=== PATIENT | female | born 1945 | race Caucasian/White ===

== ENCOUNTER → 2016-05-02 | Outpatient (CLI) | payer MEDICARE, BC ==
[~2016-05-02] MED LIST: ADVI200C5 PO; AFAT1TAB2 PO; ASPI1TAB69 PO; ASPI81TA11 PO; ASPI81TA82 PO; CALC600T25 PO; CALC600T34 PO; CALCTAB32 PO; CEFU1TAB43 PO; COLA100C3 PO; CORTIS10A LEFT EAR; COUM6TAB PO; FERR200T PO; FERR65TA PO; HYDR-3516 PO; LEVO.025 PO; LEVO25TA4 PO; LOSA25TA31 PO; LOSA50TA PO; MUCI600T PO; PRAV20 PO; PRED10PA PO; SYNT25TA PO; TAGRISSO PO; TOPA25TA8 PO; TOPI1TAB36 PO; TOPI25 PO; VITA10004 PO; WARF-60 PO; [UNRECOGNIZED DRUG - CODE] PO
[2016-05-02 15:08] LABS: AUTOMATED NEUTROPHIL # 7.2 TH/MM3 (1.8-7.7); BASOPHIL % 0.4 % (0.0-2.0); EOSINOPHIL # 0.3 TH/MM3 (0-0.4); HEMATOCRIT 37.3 % (35.0-46.0); HEMO FLAGS DIFF FINAL; LYMPH % 4.4 % (9.0-44.0); LYMPHOCYTE # 0.4 TH/MM3 (1.0-4.8); MEAN CORPUSCULAR HEMOGLOBIN 30.7 PG (27.0-34.0); MEAN CORPUSCULAR HGB CONC 33.7 % (32.0-36.0); MONO % 6.5 % (0.0-8.0); NEUT % 85.7 % (16.0-70.0); PLATELET COUNT 225 TH/MM3 (150-450); RED CELL DISTRIBUTION WIDTH 14.8 % (11.6-17.2); WHITE BLOOD COUNT 8.4 TH/MM3 (4.0-11.0)
--- NOTE | 2016-05-03 14:08 | EKG ---
Date Performed: 05/02/2016 Time Performed: 13:40:23 PTAGE: 71 years EKG: Sinus rhythm Compared to previous tracing, early transition is new probably due to lead placement. NORMAL ECG PREVIOUS TRACING : 11/30/2015 09.23 DOCTOR: Zay Sewell Interpretating Date/Time 05/03/2016 14:07:19
== END ==
LOC: CPRE 13:18
PROVIDERS: ATTEND Ophthalmology
DX: Z01.810 Encounter for preprocedural cardiovascular examination (principal); Z01.812 Encounter for preprocedural laboratory examination; H26.9 Unspecified cataract
CPT/HCPCS: 36415; 85025; 93005

== ENCOUNTER 2016-05-25 12:07 | Inpatient (IN) | payer MEDICARE, BC ==
[~2016-05-25] VITALS: Ht 167.6 cm; Wt 55.3 kg
[~2016-05-25 12:07] MED LIST changes: -AFAT1TAB2 PO; -ASPI81TA11 PO; -ASPI81TA82 PO; -CALC600T34 PO; -CALCTAB32 PO; -CEFU1TAB43 PO; -CORTIS10A LEFT EAR; -COUM6TAB PO; -FERR200T PO; -FERR65TA PO; -LEVO.025 PO; -LOSA25TA31 PO; -MUCI600T PO; -PRAV20 PO; -PRED10PA PO; -SYNT25TA PO; -TOPA25TA8 PO; -TOPI25 PO; -WARF-60 PO; -[UNRECOGNIZED DRUG - CODE] PO
[2016-05-25 12:11] VITALS: BP 101/56; PULSE 102; RESP 20; TEMP 96.9; O2SAT 94
--- NOTE | 2016-05-25 13:01 | PD ---
HPI Chief Complaint: Abnormal Results Time Seen by Provider: 13:01 Travel History International Travel<30 days: No Contact w/Intl Traveler<30days: No Traveled to known affect area: No History of Present Illness HPI 71-year-old female with history of stage IV lung cancer presents to the ED after visiting her neurologist this morning. She states that she is very weak and tired, complains of shortness of breath. She also complains of pain in the cervical spine and intermittent diarrhea. History gathering is difficult secondary to the patient's shortness of breath. I spoke with Dr. Ha, neurology who states that the patient's O2 sats were 83% on room air in his office. He endorses a very severe decline in her functioning, stating that she was dancing 10 days ago and now is confined to a wheelchair. He sent a list of requested tests. PFSH Past Medical History Anemia: Yes Asthma: No Blood Disorders: No Anxiety: Yes Depression: No Heart Rhythm Problems: No Cancer: Yes (L BREAST AND LUNG CANCER, PORT PLACED AUGUST 2013) Cardiovascular Problems: Yes High Cholesterol: Yes Chemotherapy: Yes Chest Pain: No Congestive Heart Failure: No COPD: No Cerebrovascular Accident: Yes (TIA) Diabetes: No Diminished Hearing: No Endocrine: No GERD: Yes Genitourinary: No Headaches: Yes Hepatitis: Yes ([employer], PT STATES "NOT HEPATITIS" ON 04/24/14) Hiatal Hernia: No Hypertension: Yes Immune Disorder: No Implanted Vascular Access Dvce: Yes (INFUSAPORT RIGHT SIDE) Medical other: Yes (GERD) Musculoskeletal: No Neurologic: No Psychiatric: No Reproductive: No Respiratory: Yes (BRONCHITIS, OCC SOB) Radiation Therapy: Yes Seizures: No Sleep Apnea: No Thyroid Disease: Yes Menopausal: Yes : 2 Para: 2 Past Surgical History Abdominal Surgery: No AICD: No Body Medical Devices: R CHEST PORT Cardiac Surgery: No Section: Yes (X2) Ear Surgery: No Endocrine Surgery: No Eye Surgery: No Genitourinary Surgery: No Gynecologic Surgery: Yes (mastectomy 1988) Hysterectomy: Yes Mastectomy: Yes (LEFT SIDE) Oral Surgery: No Pacemaker: No Thoracic Surgery: No Other Surgery: Yes Social History Alcohol Use: No Tobacco Use: No Substance Use: No Allergies-Medications (Allergen,Severity, Reaction): Coded Allergies: Tylenol (Verified Allergy, Intermediate, NUMBNESS, 05/25/16) STATES TYLENOL PM Uncoded Allergies: EXCEDRIN (Allergy, Severe, DYSPNEA, 06/28/11) LATEX (Allergy, Severe, RASH, 06/28/11) BLANK (Allergy, Severe, RASH, 06/28/11) Reported Meds & Prescriptions Reported Meds & Active Scripts Active Reported Colace (Docusate Sodium) 100 Mg Cap 100 Mg PO BID PRN Advil (Ibuprofen) 200 Mg Cap 200 Mg PO Q4H PRN Hydrocodone-Acetaminophen 5-325 mg Tab 1 Tab PO Q4H PRN Topiramate 50 Mg Tab 50 Mg PO BID Losartan (Losartan Potassium) 50 Mg Tab 50 Mg PO DAILY Levothyroxine (Levothyroxine Sodium) 25 Mcg Tab 25 Mcg PO DAILY Aspirin 81 Mg Tabdr 81 Mg PO DAILY Calcium (Calcium Carbonate) 600 Mg Tab 600 Mg PO BID Review of Systems ROS Limitations: Clinical Condition (short of breath) Except as stated in HPI: all other systems reviewed are Neg Physical Exam Narrative GENERAL: Thin, chronically ill-appearing female, wearing nasal cannula, speaking in short sentences. SKIN: Warm and dry. HEAD: Normocephalic. EYES: No scleral icterus. No injection or drainage. NECK: Supple, trachea midline. No JVD or lymphadenopathy. Tender to palpation in the midline cervical spine. No limitations to range of motion. CARDIOVASCULAR: Regular rate and rhythm without murmurs, gallops, or rubs. RESPIRATORY: Breath sounds equal bilaterally. ++ accessory muscle use. GASTROINTESTINAL: Abdomen soft, non-tender, nondistended. MUSCULOSKELETAL: No cyanosis, or edema. BACK: Nontender without obvious deformity. No CVA tenderness. Data Data Last Documented VS Vital Signs Date Time Temp Pulse Resp B/P Pulse Ox O2 Delivery O2 Flow Rate FiO2 05/25/16 14:40 99 20 93 Nasal Cannula 4 05/25/16 14:40 128/66 05/25/16 12:11 96.9 Orders Complete Blood Count With Diff (05/25/16 13:02) Comprehensive Metabolic Panel (05/25/16 13:02) Prothrombin Time / Inr (Pt) (05/25/16 13:02) Act Partial Throm Time (Ptt) (05/25/16 13:02) Urinalysis - C+S If Indicated (05/25/16 13:02) Iv Access Insert/Monitor (05/25/16 13:02) Ecg Monitoring (05/25/16 13:02) Oximetry (05/25/16 13:02) Sodium Chloride 0.9% Flush (Ns Flush) (05/25/16 13:15) Carcinoembryonic Antigen (Cea) (05/25/16 13:02) Thyroid Stimulating Hormone (05/25/16 13:02) Cortisol (05/25/16 13:02) Electrocardiogram (05/25/16 13:02) Ct Pulmonary Angiogram (05/25/16 13:02) B-Type Natriuretic Peptide (05/25/16 13:02) Magnesium (Mg) (05/25/16 13:02) Ckmb (Isoenzyme) Profile (05/25/16 13:02) Troponin I (05/25/16 13:02) Mri Screening Spine W&W/O Cont (05/25/16 13:02) Pelvis, Ap Only (Routine) (05/25/16 ) Acetamin-Hydrocod 325-5 Mg ([place] 5-325 (05/25/16 15:00) Labs Laboratory Tests Test 05/25/16 14:40 White Blood Count 11.1 TH/MM3 Red Blood Count 3.33 MIL/MM3 Hemoglobin 10.0 GM/DL Hematocrit 30.3 % Mean Corpuscular Volume 91.2 FL Mean Corpuscular Hemoglobin 30.1 PG Mean Corpuscular Hemoglobin 33.1 % Concent Red Cell Distribution Width 14.5 % Platelet Count 264 TH/MM3 Mean Platelet Volume 8.2 FL Neutrophils (%) (Auto) 89.8 % Lymphocytes (%) (Auto) 4.6 % Monocytes (%) (Auto) 4.5 % Eosinophils (%) (Auto) 0.6 % Basophils (%) (Auto) 0.5 % Neutrophils # (Auto) 9.9 TH/MM3 Lymphocytes # (Auto) 0.5 TH/MM3 Monocytes # (Auto) 0.5 TH/MM3 Eosinophils # (Auto) 0.1 TH/MM3 Basophils # (Auto) 0.1 TH/MM3 CBC Comment DIFF FINAL Differential Comment Prothrombin Time 18.0 SEC Prothromb Time International 1.6 RATIO Ratio Activated Partial 45.8 SEC Thromboplast Time Sodium Level 138 MEQ/L Potassium Level 3.9 MEQ/L Chloride Level 106 MEQ/L Carbon Dioxide Level 23.1 MEQ/L Anion Gap 9 MEQ/L Blood Urea Nitrogen 36 MG/DL Creatinine 0.94 MG/DL Estimat Glomerular Filtration 58 ML/MIN Rate Random Glucose 91 MG/DL Calcium Level 8.9 MG/DL Magnesium Level 2.0 MG/DL Total Bilirubin 0.3 MG/DL Aspartate Amino Transf 42 U/L (AST/SGOT) Alanine Aminotransferase 14 U/L (ALT/SGPT) Alkaline Phosphatase 78 U/L Total Creatine Kinase 72 U/L Troponin I LESS THAN 0.02 NG/ML B-Type Natriuretic Peptide 44 PG/ML Total Protein 6.0 GM/DL Albumin 1.8 GM/DL Thyroid Stimulating Hormone 3.470 uIU/ML 3rd Gen [facility] Medical Decision Making Medical Screen Exam Complete: Yes Emergency Medical Condition: Yes Differential Diagnosis PE versus lung cancer versus medication side effect versus UTI versus dehydration versus electrolyte abnormality verus other Narrative Course 71-year-old female with history of stage IV lung cancer presents to the ED after visiting her oncologist this morning. She states that she is very weak and tired, complains of shortness of breath. She also complains of pain in the cervical spine and intermittent diarrhea. Denies abdominal pain. History gathering is difficult secondary to the patient's shortness of breath. I spoke with Dr. Ha, oncology, who states that the patient's O2 sats were 83% on room air in his office. He endorses a very severe decline in her functioning, stating that she was dancing 10 days ago and now is confined to a wheelchair. He suspects that this decline may be related to a new medication. He sent a list of requested tests. Vitals reviewed. Patient pulse 102, O2 sats 94 on room air on presentation, O2 sats dipped into the 80s when the patient speaks. Nasal cannula applied. This is a chronically ill-appearing white female, speaking in short sentences. Chest is clear to auscultation. Abdomen soft nontender. No edema in the lower extremities. Positive midline tenderness of the cervical spine. Lab work, UA, radiological studies, EKG ordered. This patient is moved to the medical pods. Please see oncoming provider note for disposition. Raisa Cavanaugh May 25, 2016 13:01
[2016-05-25] MEDS ORDERED: SODIUM CHLORIDE 0.9% FLUSH 5 ML FLUSH IVF PRN (13:15)
[2016-05-25 13:37] VITALS: O2SAT 91
[2016-05-25 14:40] VITALS: BP 128/66; PULSE 100; RESP 20; O2SAT 93
[2016-05-25] MEDS ORDERED: ACETAMINOPHEN/HYDROcodone 325 MG/5 MG TAB PO ONE (15:00)
[2016-05-25 15:15] LABS: AUTOMATED NEUTROPHIL # 9.9 TH/MM3 (1.8-7.7); BASOPHIL # 0.1 TH/MM3 (0-0.2); BASOPHIL % 0.5 % (0.0-2.0); EOSINOPHIL # 0.1 TH/MM3 (0-0.4); EOSINOPHIL % 0.6 % (0.0-4.0); HEMATOCRIT 30.3 % (35.0-46.0); HEMO FLAGS DIFF FINAL; LYMPH % 4.6 % (9.0-44.0); LYMPHOCYTE # 0.5 TH/MM3 (1.0-4.8); MEAN CELL VOLUME 91.2 FL (80.0-100.0); MEAN CORPUSCULAR HEMOGLOBIN 30.1 PG (27.0-34.0); MEAN CORPUSCULAR HGB CONC 33.1 % (32.0-36.0); MONO % 4.5 % (0.0-8.0); NEUT % 89.8 % (16.0-70.0); PLATELET COUNT 264 TH/MM3 (150-450); RED BLOOD COUNT 3.33 MIL/MM3 (4.00-5.30); RED CELL DISTRIBUTION WIDTH 14.5 % (11.6-17.2); WHITE BLOOD COUNT 11.1 TH/MM3 (4.0-11.0)
[2016-05-25 15:32] LABS: APTT (PATIENT) 45.8 SEC (24.3-30.1); INTERNATIONAL NORMALIZED RATIO 1.6 RATIO
--- NOTE | 2016-05-25 15:35 | PD ---
Physical Exam Narrative I, Dr. Millan, have reviewed the advance practice practitioner's documentation and am in agreement, met with the patient face to face, made the diagnosis, and the medical decision making was done by me. *My assessment and Findings: Patient is a 71-year-old female with history of stage IV lung cancer sent in by her oncologist due to increasing fatigue and hypoxia. She says she has been very tired for the past 2 or 3 months. She says that she feels short of breath with speaking or any exertion. She denies any chest pain. She does complain of pain to her neck. Dr. Ha is her oncologist and has suggested several tests that he wants done. Patient denies any fever or chills. She has been having diarrhea occasionally, but has not had any abdominal pain. Patient's oxygen saturation is in the 80s, but improved to 92% on 4 L. Lung sounds present bilaterally, some crackles at the right base. Abdomen is soft and nontender. Data Data Last Documented VS Vital Signs Date Time Temp Pulse Resp B/P Pulse Ox O2 Delivery O2 Flow Rate FiO2 05/25/16 14:40 99 20 93 Nasal Cannula 4 05/25/16 14:40 128/66 05/25/16 12:11 96.9 Orders Complete Blood Count With Diff (05/25/16 13:02) Comprehensive Metabolic Panel (05/25/16 13:02) Prothrombin Time / Inr (Pt) (05/25/16 13:02) Act Partial Throm Time (Ptt) (05/25/16 13:02) Urinalysis - C+S If Indicated (05/25/16 13:02) Iv Access Insert/Monitor (05/25/16 13:02) Ecg Monitoring (05/25/16 13:02) Oximetry (05/25/16 13:02) Sodium Chloride 0.9% Flush (Ns Flush) (05/25/16 13:15) Carcinoembryonic Antigen (Cea) (05/25/16 13:02) Thyroid Stimulating Hormone (05/25/16 13:02) Cortisol (05/25/16 13:02) Electrocardiogram (05/25/16 13:02) Ct Pulmonary Angiogram (05/25/16 13:02) B-Type Natriuretic Peptide (05/25/16 13:02) Magnesium (Mg) (05/25/16 13:02) Ckmb (Isoenzyme) Profile (05/25/16 13:02) Troponin I (05/25/16 13:02) Mri Screening Spine W&W/O Cont (05/25/16 13:02) Pelvis, Ap Only (Routine) (05/25/16 ) Acetamin-Hydrocod 325-5 Mg ([place] 5-325 (05/25/16 15:00) Gadodiamide Pf Inj (Omniscan Pf Inj) (05/25/16 16:09) Iohexol 350 Inj (Omnipaque 350 Inj) (05/25/16 17:33) Diet Heart Healthy (05/25/16 Dinner) Vital Signs (Adult) MIKEL.Q4H (05/25/16 18:02) Resp Oxygen Rich C Titrat 1-4 L (05/25/16 ) Albuterol-Ipratropium Neb (Duoneb Neb) (05/25/16 18:15) Acetaminophen (Tylenol) (05/25/16 18:15) Ondansetron Inj (Zofran Inj) (05/25/16 18:15) Admit Order (Ed Use Only) (05/25/16 ) Labs Laboratory Tests Test 05/25/16 14:40 White Blood Count 11.1 TH/MM3 Red Blood Count 3.33 MIL/MM3 Hemoglobin 10.0 GM/DL Hematocrit 30.3 % Mean Corpuscular Volume 91.2 FL Mean Corpuscular Hemoglobin 30.1 PG Mean Corpuscular Hemoglobin 33.1 % Concent Red Cell Distribution Width 14.5 % Platelet Count 264 TH/MM3 Mean Platelet Volume 8.2 FL Neutrophils (%) (Auto) 89.8 % Lymphocytes (%) (Auto) 4.6 % Monocytes (%) (Auto) 4.5 % Eosinophils (%) (Auto) 0.6 % Basophils (%) (Auto) 0.5 % Neutrophils # (Auto) 9.9 TH/MM3 Lymphocytes # (Auto) 0.5 TH/MM3 Monocytes # (Auto) 0.5 TH/MM3 Eosinophils # (Auto) 0.1 TH/MM3 Basophils # (Auto) 0.1 TH/MM3 CBC Comment DIFF FINAL Differential Comment Prothrombin Time 18.0 SEC Prothromb Time International 1.6 RATIO Ratio Activated Partial 45.8 SEC Thromboplast Time Sodium Level 138 MEQ/L Potassium Level 3.9 MEQ/L Chloride Level 106 MEQ/L Carbon Dioxide Level 23.1 MEQ/L Anion Gap 9 MEQ/L Blood Urea Nitrogen 36 MG/DL Creatinine 0.94 MG/DL Estimat Glomerular Filtration 58 ML/MIN Rate Random Glucose 91 MG/DL Calcium Level 8.9 MG/DL Magnesium Level 2.0 MG/DL Total Bilirubin 0.3 MG/DL Aspartate Amino Transf 42 U/L (AST/SGOT) Alanine Aminotransferase 14 U/L (ALT/SGPT) Alkaline Phosphatase 78 U/L Total Creatine Kinase 72 U/L Troponin I LESS THAN 0.02 NG/ML B-Type Natriuretic Peptide 44 PG/ML Total Protein 6.0 GM/DL Albumin 1.8 GM/DL Thyroid Stimulating Hormone 3.470 uIU/ML 3rd Gen MDM Supervised Visit with TORSTEN: Yes Narrative Course Patient is a 71-year-old female who comes in complaining of fatigue and is hypoxic. Patient connected to the secured entrance monitor, port accessed. Maintained on 4 L nasal cannula. Labs sent show no acute abnormalities. CT of the chest reveals no evidence of PE, however there is evidence of pneumonitis. Patient given pain medicine. We' ll be admitted for further management. Diagnosis Primary Impression: Pneumonitis Additional Impression: Hypoxia Admitting Information Admitting Physician Requests: Admit Martha Millan MD May 25, 2016 15:35
[2016-05-25 15:37] LABS: BLOOD UREA NITROGEN 36 MG/DL (7-18); GLOMERULAR FILTRATION RATE 58 ML/MIN (>89)
[2016-05-25 15:38] LABS: ALT (GPT) 14 U/L (10-53); ANION GAP 9 MEQ/L (5-15); AST (GOT) 42 U/L (15-37); BICARBONATE 23.1 MEQ/L (21.0-32.0); CHLORIDE 106 MEQ/L (98-107); POTASSIUM 3.9 MEQ/L (3.5-5.1); SODIUM (NA) 138 MEQ/L (136-145)
[2016-05-25 15:46] LABS: ALKALINE PHOSPHATASE 78 U/L (45-117); TOTAL BILIRUBIN ADULT 0.3 MG/DL (0.2-1.0)
[2016-05-25 15:48] LABS: CREATINE KINASE 72 U/L (26-192)
--- NOTE | 2016-05-25 15:48 | RADRPT ---
EXAM DATE/TIME: 05/25/2016 15:17 [facility] COMPARISON: CT NEEDLE BIOPSY BONE DEEP, RIGHT, October 13, 2014, 8:42. INDICATIONS : Fell months ago. MEDICAL HISTORY : None. SURGICAL HISTORY : None. ENCOUNTER: Initial ACUITY: 1 day PAIN SCORE: 0/10 LOCATION: Bilateral pelvis FINDINGS: There is no acute fracture or dislocation of the bony pelvis. Mixed sclerotic and lytic lesion is not ed within the medial aspect of the right iliac bone. Focal possible sclerotic lesion is located kelli g the superior medial aspect of the left iliac crest. These lesions are indeterminate. There is als o a probable sclerotic lesion involving the right upper sacrum in the region of the S1 segment. Thes e lesions are indeterminate. Bone scan may be helpful for further evaluation of these indeterminate lesions if not already performed at an outside institution. CONCLUSION: 1. No acute fracture or dislocation. 2. Mixed lytic and sclerotic lesion involving the medial aspect of the right iliac bone as well as pr obable sclerotic lesions involving the right upper sacrum in the S1 segment and the superior medial a spect of the left iliac crest. If there has been no outside imaging evaluating these lesions, bone s can may be helpful for further evaluation. Jovanny Garcia MD on May 25, 2016 at 15:35 Board Certified Radiologist. This report was verified electronically.
[2016-05-25] MEDS ORDERED: GADODIAMIDE PF 287 MG/ML 5 ML VIAL (for RAD MRI) IV ONE (16:09)
[2016-05-25] MEDS ORDERED: IOHEXOL 350 MG/ML 10 ML VIAL (for RAD DIAG) IV ONE (17:33)
--- NOTE | 2016-05-25 17:48 | RADRPT ---
EXAM DATE/TIME: 05/25/2016 16:53 [facility] COMPARISON: No previous studies available for comparison. INDICATIONS : Weakness oxygen sats dropping. IV CONTRAST: 50 cc Omnipaque 350 (iohexol) IV RADIATION DOSE: 7.58 CTDIvol (mGy) MEDICAL HISTORY : Cardiovascular disease. Hypertension. Carcinoma, breast.CVA, Lung ca,hepatitis thyroid disease SURGICAL HISTORY : Hysterectomy. Mastectomy, left. ENCOUNTER: Initial ACUITY: 1 day PAIN SCALE: 6/10 LOCATION: chest TECHNIQUE: Volumetric scanning of the chest was performed using a pulmonary embolism protocol MIP images were re constructed. Using automated exposure control and adjustment of the mA and/or kV according to patien t size, radiation dose was kept as low as reasonably achievable to obtain optimal diagnostic quality images. FINDINGS: PULMONARY ARTERIES: No filling defects are seen in the pulmonary arteries through the segmental level. LUNGS: Lungs are markedly abnormal with extensive predominately interstitial and groundglass density abnorma lity symmetrically in the perihilar distribution. More confluent airspace process medially in the lef t base. PLEURAE: There is no pleural thickening or pleural effusion. MEDIASTINUM: There is good visualization of the great vessels of the middle mediastinum. No evidence of mediastin al or hilar adenopathy/mass. MUSCULOSKELETAL: There appears to be a 4 cm lipoma in the subcutaneous soft tissues at the base of the right neck. MISCELLANEOUS: The visualized upper abdominal organs demonstrate no acute abnormality. I believe there are multiple parapelvic cysts in the left renal hilum. CONCLUSION: 1. Very abnormal appearance of the lungs with symmetric, predominantly perihilar ground glass density and interstitial prominence suggesting a hypersensitivity pneumonitis or other reactive process. 2. In addition, confluent airspace process in the medial aspect of the left base may represent atelec tasis or early infiltrate. 3. 4 cm lipoma in the paramidline base of the right neck. 4. Parapelvic cysts in the left kidney John Andrade MD on May 25, 2016 at 17:40 Board Certified Radiologist. This report was verified electronically.
--- NOTE | 2016-05-25 17:51 | EKG ---
Date Performed: 05/25/2016 Time Performed: 14:38:02 PTAGE: 71 years EKG: Sinus rhythm NORMAL ECG NO SIGNIFICANT CHANGE FROM PRIOR ELECTROCARDIOGRAM. PREVIOUS TRACING : 05/02/2016 13.40 DOCTOR: Se Raya Interpretating Date/Time 05/25/2016 17:49:54
--- NOTE | 2016-05-25 17:57 | RADRPT ---
EXAM DATE/TIME: 05/25/2016 15:42 [facility] COMPARISON: No previous studies available for comparison. INDICATIONS : Metastatic disease. Breast cancer with stage IV lung cancer. Unable to ambulate . CONTRAST: 12 cc Omniscan (gadodiamide) IV MEDICAL HISTORY : Carcinoma, breast. Metastatic, bone. Carcinoma, lung. SURGICAL HISTORY : Mastectomy, left. Port placement. Biopsies. ENCOUNTER: Subsequent ACUITY: 1 day PAIN SCORE: 6/10 LOCATION: Spine. TECHNIQUE: Screening MRI of the entire spinal axis was performed in the sagittal and axial planes . FINDINGS: MRI of the spine was obtained without and with contrast. Cervical Spine: There are very minimal focal areas of marrow replacement in the cervical spine. Th ere is no obvious cord involvement. In the thoracic spine there is marrow replacement at T2, T3, T8, T9 and T10. There is very minimal e nhancement at T2 and T3 without cord involvement. In the lumbar spine there is markedly abnormal marrow from T11 to L5 again without significant extrao sseous spread of tumor. I do not see obvious cord compression. CONCLUSION: Widespread metastatic disease without obvious cord compression. Subtle cord involvem ent and possible meningeal spread, dural carcinomatosis cannot be excluded on this screening exam. Alex Barrow MD FACR on May 25, 2016 at 17:37 Board Certified Radiologist. This report was verified electronically.
[2016-05-25] MEDS ORDERED: ONDANSETRON HCL 4 MG/2 ML VIAL IV PUSH PRN (18:15)
[2016-05-25 18:36] VITALS: BP 100/59; PULSE 79; RESP 18; O2SAT 94
[2016-05-25] MEDS ORDERED: RESP: ALBUTEROL 2.5 MG/IPRATROPIUM 0.5 MG NEB (PRN) NEB (19:30)
[2016-05-25] MEDS ORDERED: ACETAMINOPHEN 325 MG TAB PO PRN (20:30)
--- NOTE | 2016-05-25 20:36 | HHI.HP ---
cc: Tyson Ha MD [facility] Service [facility] Primary Care Physician Tyson Ha MD Admission Diagnosis Pneumonitis, hypoxia Diagnoses: (1) Sepsis (2) Pneumonia (3) Dehydration (4) Acute hypoxemic respiratory failure (5) Weakness Chief Complaint: Severe fatigue and progressive weakness Travel History International Travel<30 Days: No Contact w/Intl Traveler <30 Da: No Traveled to Known Affected Are: No Sepsis Criteria SIRS Criteria (2 or more): Heart rate over 90, RR > 20 or PaCO2 < 32 Sepsis Criteria (SIRS+source): Infect source susp/known History of Present Illness Mrs. Metz is a 71-year-old female with a past medical history of left breast cancer status post mastectomy 1988 and stage IV lung cancer diagnosed in 2011 treated with chemotherapy and radiation for brain metastases who was sent from oncologist Dr. Ha' office this morning for evaluation of hypoxia and severe fatigue. CT pulmonary angiogram revealed abnormal appearance of the lungs- film personally reviewed and appears consistent with pneumonia. The patient is seen in the emergency room and has the following complaints: Severe fatigue x 1 week with progressive worsening. Tired very easily with minimal exertion. Accompanied by shortness of breath. Sleeping 90% of the time and not eating or drinking much. Poor appetite. Dizziness; worse when she gets up. Some times has chills. Has cold intolerance. Some time has stomach ache. Diarrhea - was given medication by Dr. Ha for diarrhea. Also takes stool softeners for constipation. No nausea or vomiting. No peripheral edema currently. Did have some for a few weeks but it went away. Has daily calf cramps: "simba horses". Bilateral lung malignancies with mets to brain: treated with chemotherapy for years ago "didn't work"- dx 2011; had radiation therapy. Denies cough, fevers. . Review of Systems Constitutional: COMPLAINS OF: Fatigue, Dizziness, Change in appetite (poor appetite), DENIES: Fever Endocrine: COMPLAINS OF: Heat/cold intolerance (cold intolerance), DENIES: Polydipsia, Polyphagia Ears, nose, mouth, throat: DENIES: Vertigo, Running Nose Respiratory: COMPLAINS OF: Shortness of breath, DENIES: Cough Cardiovascular: DENIES: Chest pain, Lower Extremity Edema Gastrointestinal: COMPLAINS OF: Abdominal pain, Constipation, Diarrhea, Anorexia, DENIES: Nausea, Vomiting Genitourinary: DENIES: Urgency, Hematuria Musculoskeletal: COMPLAINS OF: Muscle aches Neurologic: COMPLAINS OF: Poor Balance (due to dizziness upon first standing), DENIES: Localized weakness Psychiatric: DENIES: Confusion, Agitation Past Family Social History Past Medical History Stage IV lung ca with brain mets Hypothyroidism TIA Syncope Hyperlipidemia Hypertension Bronchitis Gastroesophageal reflux disease Past Surgical History x and left thigh biopsy . Reported Medications Reported Meds & Active Scripts Active Reported Colace (Docusate Sodium) 100 Mg Cap 100 Mg PO BID PRN Advil (Ibuprofen) 200 Mg Cap 200 Mg PO Q4H PRN Hydrocodone-Acetaminophen 5-325 mg Tab 1 Tab PO Q4H PRN Topiramate 50 Mg Tab 50 Mg PO BID Losartan (Losartan Potassium) 50 Mg Tab 50 Mg PO DAILY Levothyroxine (Levothyroxine Sodium) 25 Mcg Tab 25 Mcg PO DAILY Aspirin 81 Mg Tabdr 81 Mg PO DAILY Calcium (Calcium Carbonate) 600 Mg Tab 600 Mg PO BID Allergies: Coded Allergies: Benadryl (Verified Allergy, Unknown, 05/26/16) PM component of Tylenol PM - not allergic to tylenol Uncoded Allergies: EXCEDRIN (Allergy, Severe, DYSPNEA, 06/28/11) LATEX (Allergy, Severe, RASH, 06/28/11) BLANK (Allergy, Severe, RASH, 06/28/11) Active Ordered Medications Current Medications IV Flush (NS Flush) 2 ml UNSCH PRN IVF FLUSH AFTER USING IV ACCESS; Start at 13:15 Acetaminophen/ Hydrocodone Bitart (Burke 5-325 Mg) 1 tab ONCE ONCE PO Last administered on 05/25/16 17:18; Start 05/25/16 at 15:00; Stop 05/25/16 at 15:01; Status DC Gadodiamide (Omniscan Pf Inj) 12 ml STK-MED ONCE IV Last administered on 16:09; Start 05/25/16 at 16:09; Stop 05/25/16 at 16:10; Status DC Iohexol (Omnipaque 350 Inj) 50 ml STK-MED ONCE IV Last administered on t 17:33; Start 05/25/16 at 17:33; Stop 05/25/16 at 17:34; Status DC Albuterol/ Ipratropium (Duoneb Neb) 1 ampule Q4HR NEB PRN NEB SHORTNESS OF BREATH; Start 05/25/16 at 19:30 Acetaminophen (Tylenol) 650 mg Q4H PRN PO FEVER; Start 05/25/16 at 18:15; Status UNV Ondansetron HCl (Zofran Inj) 4 mg Q8HR PRN IV PUSH NAUSEA; Start 05/25/16 at 18: 15 Methylprednisolone Sodium Succinate (SoluMEDROL INJ) 60 mg Q8H IV PUSH ; Start 05/25/16 at 20:00 Family History Brother with kidney CA . Social History Tobacco: never really smoked (smoked 2 packs when she was 16 y/o), exposed to heavy second hand smoke from ex- Alcohol: socially Drugs: denied ever using . Physical Exam Vital Signs Vital Signs Date Time Temp Pulse Resp B/P Pulse Ox O2 Delivery O2 Flow Rate FiO2 05/25/16 18:36 79 18 100/59 94 Nasal Cannula 4 05/25/16 14:40 99 20 93 Nasal Cannula 4 05/25/16 14:40 100 20 128/66 93 Nasal Cannula 4 05/25/16 13:37 91 2 05/25/16 12:11 96.9 102 20 101/56 94 Physical Exam GENERAL: This is a pleasant elderly female patient, in no apparent distress. SKIN: No rashes, ecchymoses or lesions. Cool and dry. HEAD: Atraumatic. Normocephalic. EYES: No scleral icterus. No injection or drainage. ENT: Nose without bleeding, purulent drainage. NECK: Trachea midline. No JVD or lymphadenopathy. CARDIOVASCULAR: Regular rate and rhythm without murmurs, gallops, or rubs. RESPIRATORY: Breath sounds with diminished breath sounds, equal bilaterally. No wheezes, rales, or rhonchi. Respiratory rate = 22. GASTROINTESTINAL: Abdomen soft, non-tender, nondistended. No guarding. MUSCULOSKELETAL: Extremities without clubbing, cyanosis, or edema. No calf tenderness. NEUROLOGICAL: Awake but drowsy. Motor and sensory grossly within normal limits. Normal speech. .. Laboratory Laboratory Tests Test 05/25/16 14:40 White Blood Count 11.1 Red Blood Count 3.33 Hemoglobin 10.0 Hematocrit 30.3 Mean Corpuscular Volume 91.2 Mean Corpuscular Hemoglobin 30.1 Mean Corpuscular Hemoglobin 33.1 Concent Red Cell Distribution Width 14.5 Platelet Count 264 Mean Platelet Volume 8.2 Neutrophils (%) (Auto) 89.8 Lymphocytes (%) (Auto) 4.6 Monocytes (%) (Auto) 4.5 Eosinophils (%) (Auto) 0.6 Basophils (%) (Auto) 0.5 Neutrophils # (Auto) 9.9 Lymphocytes # (Auto) 0.5 Monocytes # (Auto) 0.5 Eosinophils # (Auto) 0.1 Basophils # (Auto) 0.1 CBC Comment DIFF FINAL Differential Comment Prothrombin Time 18.0 Prothromb Time International 1.6 Ratio Activated Partial 45.8 Thromboplast Time Sodium Level 138 Potassium Level 3.9 Chloride Level 106 Carbon Dioxide Level 23.1 Anion Gap 9 Blood Urea Nitrogen 36 Creatinine 0.94 Estimat Glomerular Filtration 58 Rate Random Glucose 91 Calcium Level 8.9 Magnesium Level 2.0 Total Bilirubin 0.3 Aspartate Amino Transf 42 (AST/SGOT) Alanine Aminotransferase 14 (ALT/SGPT) Alkaline Phosphatase 78 Total Creatine Kinase 72 Troponin I LESS THAN 0.02 B-Type Natriuretic Peptide 44 Total Protein 6.0 Albumin 1.8 Thyroid Stimulating Hormone 3.470 3rd Gen Result Diagram: 05/25/16 1440 05/25/16 [address] Angiography 05/25/16 1302 Signed Impressions: Service Date/Time: Wednesday, May 25, 2016 16:53 - CONCLUSION: 1. Very abnormal appearance of the lungs with symmetric, predominantly perihilar ground glass density and interstitial prominence suggesting a hypersensitivity pneumonitis or other reactive process. 2. In addition, confluent airspace process in the medial aspect of the left base may represent atelectasis or early infiltrate. 3. 4 cm lipoma in the paramidline base of the right neck. 4. Parapelvic cysts in the left kidney John Andrade MD Pelvis X-Ray 05/25/16 0000 Signed Impressions: Service Date/Time: Wednesday, May 25, 2016 15:17 - CONCLUSION: 1. No acute fracture or dislocation. 2. Mixed lytic and sclerotic lesion involving the medial aspect of the right iliac bone as well as probable sclerotic lesions involving the right upper sacrum in the S1 segment and the superior medial aspect of the left iliac crest. If there has been no outside imaging evaluating these lesions, bone scan may be helpful for further evaluation. Jovanny Garcia MD Assessment and Plan Problem List: (1) Sepsis ICD Code: A41.9 Status: Acute (2) Pneumonia ICD Code: J18.9 Status: Acute (3) Acute hypoxemic respiratory failure ICD Code: J96.01 Status: Acute (4) Dehydration ICD Code: E86.0 Status: Acute (5) Weakness ICD Code: R53.1 Status: Acute Assessment and Plan Mrs. Metz is a 71-year-old female with a past medical history of left breast cancer status post mastectomy 1988 and stage IV lung cancer diagnosed in 2011 treated with chemotherapy and radiation for brain metastases who was sent from oncologist Dr. Ha' office this morning for evaluation of hypoxia and severe fatigue. CT pulmonary angiogram revealed abnormal appearance of the lungs- film personally reviewed and appears consistent with pneumonia. Sepsis - Respiratory rate greater than 22, tachycardic, pneumonia on CT angiogram - meets sepsis criteria - Lactic acid 1.5 - WBC 11.1 with neutrophilia, we'll repeat CBC in a.m. and follow trends - Vancomycin IV with pharmacy consult to assist with therapeutic monitoring and dosing - Zosyn 4.5 g IV every 6 hours - IV fluid hydration with normal saline at 100 cc per hour for maintenance after 1740 cc IV fluid bolus Pneumonia Acute hypoxemic respiratory failure - Duo nebulizers every 4 hours when necessary shortness of breath - Supplemental oxygen via nasal cannula titrated to maintain oxygen saturation greater than 92% - Solu-Medrol 60 mg IV every 8 hours as ordered by Dr. Ha Dehydration - IV fluid hydration with normal saline at 100 cc per hour Weakness - Consult physical therapy Stage IV lung cancer - We will consult patient's oncologist Dr. Ha; appreciate his assistance GERD - Protonix 40 mg p.o. q24h DVT prophylaxis - Lovenox 40 mg subcutaneous every 24 hours Written by Lisbeth Waite, acting as scribe for Dr. Mandujano on 05/25/16 at 20:36. The documentation accurately reflects the work performed [id number] by me on .05/25/16 at 20:36. Discussed Condition With Patient, her , and ER physician Physician Certification 2 Midnight Certification Type: Admission for Inpatient Services Order for Inpatient Services The services are ordered in accordance with Medicare regulations or non- Medicare payer requirements, as applicable. In the case of services not specified as inpatient-only, they are appropriately provided as inpatient services in accordance with the 2-midnight benchmark. Estimated LOS (days): 3 days is the estimated time the patient will need to remain in the hospital, assuming treatment plan goals are met and no additional complications. Post-Hospital Plan: Not yet determined Lisbeth Waite May 25, 2016 20:36 Joey Zuniga MD Jun 01, 2016 23:07
[2016-05-25] MEDS ORDERED: SODIUM CHLOR 0.9% 250 ML INJ 250 ML IV ONE (20:45)
[2016-05-25] MEDS ORDERED: SODIUM CHLORID 0.9% 500 ML INJ 500 ML IV ONE (20:45)
[2016-05-25] MEDS ORDERED: Vancomycin Consult Pharmacy 1 EA OTHER SCH (20:45)
[2016-05-25] MEDS ORDERED: SODIUM CHLOR 0.9% 1000 ML INJ 1,000 ML IV ONE (21:00)
[2016-05-25] MEDS: SODIUM CHLOR 0.9% 1000 ML INJ 1,000 ML IV SCH (21:00)
[2016-05-25] MEDS: PIPERACIL-TAZO 4.5 GM PREMIX 100 ML IV SCH (21:21)
[2016-05-25] MEDS: methylPREDNISolone SOD SUCC 125 MG/2 ML VIAL IV PUSH SCH (21:21)
[2016-05-25 21:25] VITALS: BP 102/56; PULSE 88; RESP 18; O2SAT 94
[2016-05-25] MEDS ORDERED: VANCOMYCIN INJ 1,150 MG in SODIUM CHLOR 0.9% 250 ML INJ 250 ML IV ONE (22:00)
[2016-05-25] MEDS: TOPIRAMATE 25 MG TAB PO SCH (22:45)
[2016-05-25 23:21] VITALS: BP 109/55; PULSE 104; RESP 18; O2SAT 98
[2016-05-26] VITALS (10 sets, daily range): BP systolic 100–126; BP diastolic 55–65; PULSE 89–105; RESP 18–25; TEMP 95.7–98.2; O2SAT 87–100
[2016-05-26] MEDS: PIPERACIL-TAZO 4.5 GM PREMIX 100 ML IV SCH ×4 (03:14→21:05)
[2016-05-26] MEDS: methylPREDNISolone SOD SUCC 125 MG/2 ML VIAL IV PUSH SCH ×3 (04:00→21:04)
[2016-05-26] MEDS ORDERED: PANTOPRAZOLE SODIUM 40 MG VIAL IV PUSH SCH (05:00)
[2016-05-26] MEDS: LEVOTHYROXINE SODIUM 25 MCG TAB PO SCH (06:10)
[2016-05-26] MEDS: ENOXAPARIN SODIUM 40 MG/0.4 ML SYRINGE SQ SCH (06:10)
[2016-05-26] MEDS: SODIUM CHLOR 0.9% 1000 ML INJ 1,000 ML IV SCH ×3 (07:00→22:34)
[2016-05-26] MEDS: TOPIRAMATE 25 MG TAB PO SCH ×2 (09:17→21:05)
[2016-05-26] MEDS: ASPIRIN EC 81 MG TABEC PO SCH (09:18)
[2016-05-26] MEDS: LOSARTAN 50 MG TAB PO SCH (09:18)
[2016-05-26] MEDS: PANTOPRAZOLE SOD 40 MG DELAYED RELEASE TAB PO SCH (09:18)
--- NOTE | 2016-05-26 10:48 | HHI.PR ---
Subjective Remarks Requiring 4L O2 now. Patient says she feels sob. Scant nonproductive cough. Has hest pain with deep inspiration. No n/v/d/c. Doesn't have oxygen at home. Objective Vitals Vital Signs Date Time Temp Pulse Resp B/P Pulse Ox O2 Delivery O2 Flow Rate FiO2 05/26/16 10:41 94 Nasal Cannula 3.00 05/26/16 09:00 97.9 100 25 126/65 Nasal Cannula 3 05/26/16 08:45 92 Nasal Cannula 3 05/26/16 08:00 100 19 103/63 Nasal Cannula 3 05/26/16 07:00 98 20 108/62 94 Nasal Cannula 3 05/26/16 06:08 98.2 105 18 100/58 96 Nasal Cannula 3 05/26/16 00:25 98 18 111/55 100 Nasal Cannula 3 05/25/16 23:21 104 18 109/55 98 Nasal Cannula 2 05/25/16 21:25 88 18 102/56 94 Nasal Cannula 4 05/25/16 18:36 79 18 100/59 94 Nasal Cannula 4 05/25/16 14:40 99 20 93 Nasal Cannula 4 05/25/16 14:40 100 20 128/66 93 Nasal Cannula 4 05/25/16 13:37 91 2 05/25/16 12:11 96.9 102 20 101/56 94 I/O 05/25/16 05/25/16 05/25/16 05/26/16 05/26/16 05/26/16 07:00 15:00 23:00 07:00 15:00 23:00 Intake Total 100 ml Balance 100 ml Intake Oral 100 ml Result Diagram: 05/25/16 1440 05/25/16 [address] Angiography 05/25/16 1302 Signed Impressions: Service Date/Time: Wednesday, May 25, 2016 16:53 - CONCLUSION: 1. Very abnormal appearance of the lungs with symmetric, predominantly perihilar ground glass density and interstitial prominence suggesting a hypersensitivity pneumonitis or other reactive process. 2. In addition, confluent airspace process in the medial aspect of the left base may represent atelectasis or early infiltrate. 3. 4 cm lipoma in the paramidline base of the right neck. 4. Parapelvic cysts in the left kidney John Andrade MD Pelvis X-Ray 05/25/16 0000 Signed Impressions: Service Date/Time: Wednesday, May 25, 2016 15:17 - CONCLUSION: 1. No acute fracture or dislocation. 2. Mixed lytic and sclerotic lesion involving the medial aspect of the right iliac bone as well as probable sclerotic lesions involving the right upper sacrum in the S1 segment and the superior medial aspect of the left iliac crest. If there has been no outside imaging evaluating these lesions, bone scan may be helpful for further evaluation. Jovanny Garcia MD Objective Remarks GENERAL: This is a pleasant elderly female patient, in no apparent distress. SKIN: No rashes, ecchymoses or lesions. Cool and dry. HEAD: Atraumatic. Normocephalic. EYES: No scleral icterus. No injection or drainage. ENT: Nose without bleeding, purulent drainage. NECK: Trachea midline. No JVD or lymphadenopathy. CARDIOVASCULAR: Regular rate and rhythm without murmurs, gallops, or rubs. RESPIRATORY: Breath sounds with diminished breath sounds, equal bilaterally. No wheezes, rales, or rhonchi. Respiratory rate = 22. GASTROINTESTINAL: Abdomen soft, non-tender, nondistended. No guarding. MUSCULOSKELETAL: Extremities without clubbing, cyanosis, or edema. No calf tenderness. NEUROLOGICAL: Awake but drowsy. Motor and sensory grossly within normal limits. Normal speech. A/P Problem List: (1) Sepsis ICD Code: A41.9 Status: Acute (2) Pneumonia ICD Code: J18.9 Status: Acute (3) Acute hypoxemic respiratory failure ICD Code: J96.01 Status: Acute (4) Dehydration ICD Code: E86.0 Status: Acute (5) Weakness ICD Code: R53.1 Status: Acute Assessment and Plan Mrs. Metz is a 71-year-old female with a past medical history of left breast cancer status post mastectomy 1988 and stage IV lung cancer diagnosed in 2011 treated with chemotherapy and radiation for brain metastases who was sent from oncologist Dr. Ha' office this morning for evaluation of hypoxia and severe fatigue. CT pulmonary angiogram revealed abnormal appearance of the lungs- film personally reviewed and appears consistent with pneumonia. Sepsis - Respiratory rate greater than 22, tachycardic, pneumonia on CT angiogram - meets sepsis criteria - Lactic acid 1.5 - WBC 11.1 with neutrophilia, we'll repeat CBC in a.m. and follow trends - Vancomycin IV with pharmacy consult to assist with therapeutic monitoring and dosing - Zosyn 4.5 g IV every 6 hours - IV fluid hydration with normal saline at 100 cc per hour for maintenance after 1740 cc IV fluid bolus Pneumonia Acute hypoxemic respiratory failure - Duo nebulizers every 4 hours when necessary shortness of breath - Supplemental oxygen via nasal cannula titrated to maintain oxygen saturation greater than 92%. Might need ABG - Solu-Medrol 60 mg IV every 8 hours as ordered by Dr. Ha, taper as tolerated Dehydration - IV fluid hydration with normal saline at 100 cc per hour Weakness - Consult physical therapy Stage IV lung cancer - We will consult patient's oncologist Dr. Ha; appreciate his assistance GERD - Protonix 40 mg p.o. q24h DVT prophylaxis - Lovenox 40 mg subcutaneous every 24 hours Discussed Condition With Patient, nurse, family at bedside Ghada Winters MD May 26, 2016 10:48
[2016-05-26] MEDS ORDERED: LACTOBACILLUS ACIDOPHILUS TAB PO PRN (15:15)
[2016-05-26 15:26] LABS: BLOOD GAS BASE EXCESS -4.8 mmol/L (-2-2); BLOOD GAS CARBOXYHEMOGLOBIN 1.2 % (0-4); BLOOD GAS HCO3 19 mmol/L (22-26); BLOOD GAS METHEMOGLOBIN 0.9 % (0-2); BLOOD GAS O2 HGB SATURATION 95 % (90-100); BLOOD GAS PCO2 29 mmHg (38-42); BLOOD GAS PO2 97 mmHg (61-120); BLOOD GAS TOTAL HGB 11.9 G/DL (12.0-16.0); CRITICAL VALUE NO; TEMP CORR TO 98.6
[2016-05-26 15:27] LABS: DRAW SITE RT RADIAL; LITER FLOW 15 L/M; NUMBER OF ARTERIAL PUNCTURES 1; STAT YES; ULNAR PULSE PRESENT
--- NOTE | 2016-05-26 20:01 | MB ---
cc: GHADA WINTERS MD,ADONAY Eddy MD DATE OF CONSULTATION: 05/26/[address] Ghada Winters REASON FOR CONSULTATION Respiratory insufficiency and lung infiltrate. HISTORY OF PRESENT ILLNESS Ms. Metz is a pleasant 71-year-old [place] female who has a history of non-small cell carcinoma stage IV. She has been treated with antibiotic by Dr. Tyson Ha. She is taking treatment with Tagrisso 80 mg because of failed chemotherapy. She has also brain mets, also a history of breast cancer. The patient went to see Dr. Tyson Ha, she was feeling very weak and tired, not able to do anything and has chronic diarrhea and that is why she was sent to the hospital. She had a workup done. She had a CT scan of the chest, it does not show any pulmonary embolism. She has bilateral symmetric predominantly perihilar ground-glass density suggestive of hypersensitivity pneumonia, confluent airspace process in the left base which may represent atelectasis. She had a CBC done which showed WBC count of 11.1, hemoglobin 10.0, hematocrit 30.3, MCV 91, platelet count 264. Sodium 130, potassium 3.9, chloride 106, CO2 23, BUN 36, creatinine 0.94. Blood gas on non-rebreather mask pH 7.43, pCO2 29, pO2 97, bicarb 19. PAST MEDICAL HISTORY 1. History of stage IV non-small cell carcinoma of the lung status post chemotherapy. 2. History of brain mets. 3. History of CA of the breast. 4. Hypertension. 5. Hyperlipidemia. 6. History of syncope. 7. TIA. 8. History of . MEDICATIONS She is currently taking - 1. Vancomycin IV. 2. Aspirin 81 mg a day. 3. Cozaar 50 mg a day. 4. Protonix 40 mg a day. 5. Synthroid 25 mcg a day. 6. Lovenox 40 mg a day. 7. Topiramate 50 mg twice a day. 8. Zosyn IV. 9. Solu-Medrol 60 mg q.8 hours. 10. Albuterol/Atrovent nebulizer treatment. ALLERGIES SHE IS ALLERGIC TO BENADRYL, EXCEDRIN, LATEX, NICKEL AND TYLENOL. SOCIAL HISTORY She is . She worked as an artist. She has no history of smoking. Drinks rarely. FAMILY HISTORY She has two children. REVIEW OF SYSTEMS She has lost a significant amount of weight. Her appetite is poor. She has diarrhea, feels weak. She sleeps a lot. No headache or dizziness. PHYSICAL EXAMINATION GENERAL: A thin-built, elderly, frail female short of breath. VITAL SIGNS: Blood pressure 118/62, heart rate 89, respiration 20, oxygen saturation 96% on non-rebreather mask. HEENT: Pupils are equal and react to light. Oral mucoa, nasal mucosa normal. NECK: Supple. JVP not raised. CHEST: She has bilateral inspiratory rales. CARDIOVASCULAR: S1, S2 normal. ABDOMEN: Benign. EXTREMITIES: No edema. IMPRESSION 1. Respiratory insufficiency. 2. Hypoxia. 3. Bilateral interstitial infiltrate, likely hypersensitivity pneumonia possibly related to chemotherapy. 4. Atelectasis. 5. Non-small cell carcinoma of the lung stage IV with brain mets with failed chemotherapy. 6. History of CA of the breast. PLAN I discussed with the patient at the bedside. I will keep her on non-rebreather mask, keep the saturation greater than 90%. Continue IV steroids and continue antibiotics and see the response of steroid. Monitor her electrolytes and her blood sugar. Further treatment will depend on the course in the hospital. Thank you Dr. Ghada Winters for this consultation. MD JARED Meyers/LIANNE /6:22 PM /7:20 PM
--- NOTE | 2016-05-26 22:09 | MB ---
cc: FEDE PEDROZA DATE OF CONSULTATION 05/26/16 REASON FOR CONSULTATION 1. Stage IV lung cancer 2. Respiratory failure with diffuse ground-glass opacities in both lungs. PATENT PROFILE The patient is a 71-year-old female. She was born in [facility]. She lives in [place], [place]. 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 She has two daughters from her first marriage. Alcohol intake is minimal. She does not smoke. HISTORY OF PRESENT ILLNESS The patient was well until 11/2010 when she developed symptoms of a respiratory tract infection. On June 08, 2011, she was found to have 1.5 cm mass om the left lung as well as mediastinal lymph nodes. A PET scan revealed metastatic disease to bone. She had a mediastinoscopy and was found to have an adenocarcinoma with an EGFR mutation and exon 19. An MRI of the brain on 07/19/2011 showed multiple small metastatic lesions. She was treated to the brain with radiation therapy in July of 2011. She has received multiple treatments since that time. She was treated with Tarceva and developed progressive disease. She then received a second drug on an experimental protocol called rocelitinib. She eventually developed progressive disease. She has received extensive chemotherapy. She again developed progressive disease and was treated with nivolumab without success. She was started on Tagresso on 02/19/2016. She arrived in my office yesterday. She was hypoxic with O2 saturations of 78%. She was weak. This deterioration had taken place over two weeks. I referred her to the emergency room and requested that she have a CT angiogram. This shows an abnormal appearance of both lungs with symmetrical perihilar ground-glass densities and interstitial prominence. This is very characteristic of the pneumonitis that one sees with tyrosine kinase inhibitors. She has had no fevers or sputum production. She states that she is not breathing any better today. She is still short of breath with minimal exertion. What is remarkable is that her CEA has fallen since starting the Targressa. On 02/01, it was 520. On 04/26 it as 285 and on 05/26 it is 80. This has always been a reflection of her response or lack of response to treatment. Other studies - hemoglobin 10, white count 11,000, platelets 264,000. Lytes, BUN, creatinine liver function tests notable for BUN of 36, liver function tests are normal. Albumin is 1.8. TSH is 3.4 and a random cortisol is 33.6. She has had discomfort in the cervical spine and to a lesser extent thoracic spine. She has known metastatic disease to bone. On 05/25/2016, she had a screening MRI of the spine. This shows widespread metastatic disease without obvious cord compression. There are minimal areas of marrow replacement in the cervical spine. In the thoracic spine, there is marrow replacement T2, T3, T8, T9 and T10. In the lumbar spine, there is an abnormality at T11 to L5. There is no extraosseous spread of tumor. Her current complaints are weakness, shortness of breath, diarrhea, occasional constipation. PAST SURGICAL HISTORY 1. Left modified radical mastectomy 1988 for breast cancer. She did not require any postoperative treatment. 2. Ovarian tumor removal at of daughter and was benign 3. Mediastinoscopy in 2011 establishing diagnosis of moderately differentiated adenocarcinoma consistent with a lung cancer EGFR mutation present with an exon 19 deletion. 4. [id number] placement. PAST MEDICAL HISTORY 1. Breast cancer as described above dating back to 1988 with left modified radical mastectomy without recurrence 2. Stage IV adenocarcinoma of the lung dating back to May of 2011. 3. Hypothyroidism and replacement 4. History of seizure disorder giving the appearance of a TIA. ALLERGIES EXCEDRIN LATEX TYLENOL PM. MEDICATIONS Prior to admission 1. Topamax 2. Losartan 3. Levothyroxine 4. Hydrocodone Acetaminophen 5. Calcium 6. Aspirin 7. Advil REVIEW OF SYSTEMS No change in vision or hearing. No chest pain, orthopnea, PND. RESPIRATORY: Short of breath with minimal activity. No abdominal or pelvic pain. GASTROINTESTINAL: Frequent diarrhea, occasional constipation. No melena or hematochezia. GENITOURINARY: No dysuria, frequency or hematuria. PELVIC: No vaginal bleeding. She has had bone pain in the cervical and to a lesser extent the thoracic spine. NEUROLOGIC: Generalized but not focal weakness. PSYCHIATRIC: Discouraged but in spite of all the problems not depressed. PHYSICAL EXAMINATION GENERAL: Reveals a pleasant female. She looks sallow and tired. She is short of breath with minimal activity. VITAL SIGNS: Blood pressure 130/60, respiratory rate 20, pulse 90, afebrile. O2 sat 95%. HEENT: Head is normocephalic. Sclerae and conjunctivae are normal. Oropharynx unremarkable. LYMPH: There is no cervical, supraclavicular, axillary or inguinal adenopathy. BREASTS: She has had a left mastectomy, no recurrence. HEART: Regular rhythm, rate 90. LUNGS: Revealed dry rales alf up both lungs. ABDOMEN: Without hepatosplenomegaly. EXTREMITIES: No edema. MUSCULOSKELETAL: Slight tenderness lower cervical, upper thoracic spine. NEUROLOGIC: Generalized but no focal weakness. ASSESSMENT The patient is a 71-year female who has had stage IV breast cancer involving bone, lymph nodes, and brain dating back to 2011. She is currently on a medicine called Tagrisso. The other name is osimertinib. This is a kinase inhibitor. Serious reactions include interstitial lung disease. In reviewing the CT scan of the thorax, it has a typical appearance of what one sees with the kinase inhibitors used for lung cancer. PLAN 1. High-dose steroids. Last evening when I saw the CT scan, I ordered Solu-Medrol 60 q.8 h 2. Pulmonary, Dr. Reynoso, has seen her and started antibiotics. I doubt that this is an infection given the appearance, lack of fever, lack of sputum production and current situation, but it is certainly reasonable for a while to continue the antibiotics. 3. I met with the and daughter. I cannot guarantee anyone that she will get better but usually people respond to steroids and it should be continued. If she starts getting better then her hypoxia will improve. She has a history of a seizure disorder and the Topamax should be continued. What is noteworthy is that the CEA has dropped considerably since the . In January it was 520, on April 26 it was 285 and is currently 80. I suspect that she has very little active lung cancer. Unfortunately, I believe this medicine cannot be used again given that this is a life-threatening problem. We will continue to follow with you and hopefully in several days we will see improvement. Thank you very much for the consultation. MD ANTONETET Chu/ 8:55 PM /9:30 PM CHARLI
[2016-05-26] MEDS ORDERED: ACETAMINOPHEN/HYDROcodone 325 MG/5 MG TAB PO PRN (22:15)
[2016-05-26] MEDS: ACETAMINOPHEN/HYDROcodone 325 MG/10 MG TAB PO PRN (22:32)
[2016-05-26] MEDS: VANCOMYCIN 1,000 MG/NS 250 ML IV SCH ×2 (22:33)
[2016-05-27] VITALS (8 sets, daily range): BP systolic 103–139; BP diastolic 53–66; PULSE 71–84; RESP 16–20; TEMP 95.4–98; O2SAT 90–99
[2016-05-27] MEDS: PIPERACIL-TAZO 4.5 GM PREMIX 100 ML IV SCH ×4 (05:20→21:55)
[2016-05-27] MEDS: LEVOTHYROXINE SODIUM 25 MCG TAB PO SCH (05:21)
[2016-05-27] MEDS: ENOXAPARIN SODIUM 40 MG/0.4 ML SYRINGE SQ SCH (05:21)
[2016-05-27] MEDS: methylPREDNISolone SOD SUCC 125 MG/2 ML VIAL IV PUSH SCH ×3 (05:21→21:55)
[2016-05-27] MEDS: ACETAMINOPHEN/HYDROcodone 325 MG/10 MG TAB PO PRN (05:22)
[2016-05-27] MEDS: ASPIRIN EC 81 MG TABEC PO SCH (08:45)
[2016-05-27] MEDS: PANTOPRAZOLE SOD 40 MG DELAYED RELEASE TAB PO SCH (08:46)
[2016-05-27] MEDS: LOSARTAN 50 MG TAB PO SCH (08:46)
[2016-05-27] MEDS: TOPIRAMATE 25 MG TAB PO SCH ×2 (08:46→21:56)
--- NOTE | 2016-05-27 10:51 | HHI.PR ---
Subjective Remarks Patient on venti mask says she feels much better than yesterday. Seen by pulm service as well. Recommends continuing steroids. Patient without fevers or chills. No n/v/d/c. Objective Vitals Vital Signs Date Time Temp Pulse Resp B/P Pulse Ox O2 Delivery O2 Flow Rate FiO2 05/27/16 08:00 95.4 71 20 113/61 99 05/27/16 04:00 98.0 84 20 105/61 99 05/27/16 00:00 97.3 83 20 103/63 99 05/26/16 20:00 96.3 102 20 125/58 95 05/26/16 15:00 95.7 89 20 118/62 96 05/26/16 12:07 96 Non-Rebreather 15.00 05/26/16 11:02 97.0 100 20 117/61 87 I/O 05/26/16 05/26/16 05/26/16 05/27/16 05/27/16 05/27/16 06:59 14:59 22:59 06:59 14:59 22:59 Intake Total 1730 ml 360 ml 120 ml Balance 1730 ml 360 ml 120 ml Intake Oral 340 ml 360 ml 120 ml IV Total 1390 ml # Voids 1 1 1 # Bowel Movements 2 2 0 Result Diagram: 05/25/16 1440 05/27/16 0718 Imaging Last Impressions Entire Spine MRI 05/25/16 1302 Signed Impressions: Service Date/Time: Wednesday, May 25, 2016 15:42 - CONCLUSION: Widespread metastatic disease without obvious cord compression. Subtle cord involvement and possible meningeal spread, dural carcinomatosis cannot be excluded on this screening exam. Alex Barrow MD FACR CT Angiography 05/25/16 1302 Signed Impressions: Service Date/Time: Wednesday, May 25, 2016 16:53 - CONCLUSION: 1. Very abnormal appearance of the lungs with symmetric, predominantly perihilar ground glass density and interstitial prominence suggesting a hypersensitivity pneumonitis or other reactive process. 2. In addition, confluent airspace process in the medial aspect of the left base may represent atelectasis or early infiltrate. 3. 4 cm lipoma in the paramidline base of the right neck. 4. Parapelvic cysts in the left kidney John Andrade MD Pelvis X-Ray 05/25/16 0000 Signed Impressions: Service Date/Time: Wednesday, May 25, 2016 15:17 - CONCLUSION: 1. No acute fracture or dislocation. 2. Mixed lytic and sclerotic lesion involving the medial aspect of the right iliac bone as well as probable sclerotic lesions involving the right upper sacrum in the S1 segment and the superior medial aspect of the left iliac crest. If there has been no outside imaging evaluating these lesions, bone scan may be helpful for further evaluation. Jovanny Garcia MD Objective Remarks GENERAL: This is a pleasant elderly female patient, in no apparent distress. SKIN: No rashes, ecchymoses or lesions. Cool and dry. HEAD: Atraumatic. Normocephalic. EYES: No scleral icterus. No injection or drainage. ENT: Nose without bleeding, purulent drainage. NECK: Trachea midline. No JVD or lymphadenopathy. CARDIOVASCULAR: Regular rate and rhythm without murmurs, gallops, or rubs. RESPIRATORY: Breath sounds with diminished breath sounds, equal bilaterally. No wheezes, rales, or rhonchi. Respiratory rate = 22. GASTROINTESTINAL: Abdomen soft, non-tender, nondistended. No guarding. MUSCULOSKELETAL: Extremities without clubbing, cyanosis, or edema. No calf tenderness. NEUROLOGICAL: Awake but drowsy. Motor and sensory grossly within normal limits. Normal speech. A/P Problem List: (1) Sepsis ICD Code: A41.9 Status: Acute (2) Pneumonia ICD Code: J18.9 Status: Acute (3) Acute hypoxemic respiratory failure ICD Code: J96.01 Status: Acute (4) Dehydration ICD Code: E86.0 Status: Acute (5) Weakness ICD Code: R53.1 Status: Acute Assessment and Plan Mrs. Metz is a 71-year-old female with a past medical history of left breast cancer status post mastectomy 1988 and stage IV lung cancer diagnosed in 2011 treated with chemotherapy and radiation for brain metastases who was sent from oncologist Dr. Ha' office this morning for evaluation of hypoxia and severe fatigue. CT pulmonary angiogram revealed abnormal appearance of the lungs- film personally reviewed and appears consistent with pneumonia. Sepsis - Respiratory rate greater than 22, tachycardic, pneumonia on CT angiogram - meets sepsis criteria - Lactic acid 1.5 - WBC 11.1 with neutrophilia, we'll repeat CBC in a.m. and follow trends - Vancomycin IV with pharmacy consult to assist with therapeutic monitoring and dosing - Zosyn 4.5 g IV every 6 hours - IV fluid hydration with normal saline at 100 cc per hour for maintenance after 1740 cc IV fluid bolus Pneumonia Acute hypoxemic respiratory failure - Duo nebulizers every 4 hours when necessary shortness of breath - Supplemental oxygen via nasal cannula titrated to maintain oxygen saturation greater than 92%. Might need ABG - Solu-Medrol 60 mg IV every 8 hours as ordered by Dr. Ha, taper as tolerated Dehydration - IV fluid hydration with normal saline at 100 cc per hour Weakness - Consult physical therapy Stage IV lung cancer - We will consult patient's oncologist Dr. Ha; appreciate his assistance GERD - Protonix 40 mg p.o. q24h DVT prophylaxis - Lovenox 40 mg subcutaneous every 24 hours Discussed Condition With Patient, nurse Ghada Winters MD May 27, 2016 10:51
[2016-05-27] MEDS: SODIUM CHLOR 0.9% 1000 ML INJ 1,000 ML IV SCH ×2 (11:13→23:30)
--- NOTE | 2016-05-27 12:02 | PD.ONC.PN ---
Subjective Subjective Remarks Afebrile overnight. Patient resting comfortably. Objective Data Date Time Temp Pulse Resp B/P Pulse Ox O2 Delivery O2 Flow Rate FiO2 05/27/16 08:00 95.4 71 20 113/61 99 05/27/16 04:00 98.0 84 20 105/61 99 05/27/16 00:00 97.3 83 20 103/63 99 05/26/16 20:00 96.3 102 20 125/58 95 05/26/16 15:00 95.7 89 20 118/62 96 05/26/16 12:07 96 Non-Rebreather 15.00 05/27/16 05/27/16 05/27/16 07:00 15:00 23:00 Intake Total 120 ml 3856 ml Balance 120 ml 3856 ml Result Diagram: 05/25/16 1440 05/27/16 0718 Laboratory Results Laboratory Tests Test 05/26/16 05/27/16 15:14 07:18 Blood Gas Puncture Site RT RADIAL Blood Gas Patient Temperature 98.6 Blood Gas HCO3 19 mmol/L Blood Gas Base Excess -4.8 mmol/L Blood Gas Oxygen Saturation 95 % Arterial Blood pH 7.43 Arterial Blood Partial 29 mmHg Pressure CO2 Arterial Blood Partial 97 mmHg Pressure O2 Arterial Blood Oxygen Content 16.0 Vol % Arterial Blood 1.2 % Carboxyhemoglobin Arterial Blood Methemoglobin 0.9 % Blood Gas Hemoglobin 11.9 G/DL Oxygen Delivery Device Non-Rebreathing Mask Blood Gas Liter Flow 15 L/M Creatinine 0.92 MG/DL Estimat Glomerular Filtration 60 ML/MIN Rate Administered Medications Medications (Trade) Dose Ordered Sig/Ursula Route PRN Reason Start Time Stop Time Status Last Admin Dose Admin Methylprednisolone Sodium Succinate 60 mg 60 mg Q8H IV PUSH 05/25/16 20:00 05/27/16 11:13 Sodium Chloride 1,000 ml @ 100 mls/hr Q10H IV 05/25/16 21:00 05/27/16 11:13 Piperacillin Sod/ Tazobactam Sod (Zosyn 4.5 Gm Premix) 100 ml @ 200 mls/hr Q6H IV 05/25/16 21:00 05/27/16 08:45 Aspirin (Ecotrin Ec) 81 mg DAILY PO 05/26/16 09:00 05/27/16 08:45 Levothyroxine Sodium (Synthroid) 25 mcg DAILY@06 PO 05/26/16 06:00 05/27/16 05:21 Losartan Potassium (Cozaar) 50 mg DAILY PO 05/26/16 09:00 05/27/16 08:46 Topiramate (Topamax) 50 mg BID PO 05/25/16 22:45 05/27/16 08:46 Enoxaparin Sodium (Lovenox Inj) 40 mg Q24H SQ 05/26/16 06:00 05/27/16 05:21 Pantoprazole Sodium 40 mg 40 mg DAILY PO 05/26/16 09:00 05/27/16 08:46 Vancomycin HCl/ Sodium Chloride (Vancomycin Inj/ NS 250 ml Inj) 250 ml @ 250 mls/hr Q24H IV 05/26/16 22:00 05/26/16 22:33 Lactobacillus Acidophilus (Lactinex) 1 tab Q8H PRN PO diarrhea 05/26/16 15:15 05/26/16 15:58 Acetaminophen/ Hydrocodone Bitart ([place] 10-325 Mg) 1 tab Q4H PRN PO PAIN 6-10 05/26/16 22:15 05/27/16 05:22 Objective Remarks GENERAL: Pleasant, elderly female, sitting up in bed in nad. On 15L via NRB mask SKIN: Warm and dry. HEAD: Normocephalic. EYES: No injection or drainage. NECK: Supple, trachea midline. CARDIOVASCULAR: Regular rate and rhythm RESPIRATORY: dry rales heard at bases, anterior castillo and superior posterior lung castillo mostly clear with some faint rales. GASTROINTESTINAL: Abdomen soft, non-tender, nondistended. EXTREMITIES: No cyanosis, or edema. NEUROLOGICAL: awake and alert, normal speech. 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 CT shows+ diffuse ground-glass opacities Plan 1. CT thorax reviewed and the radiographic appearance along with the history is highly suggestive of pneumonitis 2. treatment is continued steroids which will take many days to work. Attending Statement The exam, history, and the medical decision-making described in the above note were completed with the assistance of the mid-level provider. I reviewed and agree with the findings presented. I attest that I had a [id number] encounter with the patient on the same day, and personally performed and documented my assessment and findings in the medical record. she is not any better. she remains weak, oxygen dependent, and exam of lungs unchanged. Will continue high dose steroids and hope to see improvement by Monday. Lissette Gerber May 27, 2016 12:02 Tyson Ha MD May 27, 2016 19:49
--- NOTE | 2016-05-27 18:12 | HHI.PR ---
Subjective Remarks 71 YO female with NSCLC, metastatic, ca breast On therapy with Tagreesa On NRB Desaturates on NC No Fever Objective Vital Signs Vital Signs Date Time Temp Pulse Resp B/P Pulse Ox O2 Delivery O2 Flow Rate FiO2 05/27/16 16:00 95.8 81 20 110/53 90 05/27/16 13:54 98 Non-Rebreather 15.00 100 05/27/16 12:00 95.8 82 18 113/57 99 05/27/16 08:00 95.4 71 20 113/61 99 05/27/16 04:00 98.0 84 20 105/61 99 05/27/16 00:00 97.3 83 20 103/63 99 05/26/16 20:00 96.3 102 20 125/58 95 I/O 05/26/16 05/26/16 05/26/16 05/27/16 05/27/16 05/27/16 07:00 15:00 23:00 07:00 15:00 23:00 Intake Total 1730 ml 360 ml 120 ml 3856 ml Balance 1730 ml 360 ml 120 ml 3856 ml Intake Oral 340 ml 360 ml 120 ml IV Total 1390 ml 3856 ml # Voids 1 1 1 # Bowel Movements 2 2 0 Result Diagram: 05/25/16 1440 05/27/16 0718 Objective Remarks GENERAL: MBMN Female, sob SKIN: Warm and dry. HEAD: Normocephalic. EYES: No scleral icterus. No injection or drainage. NECK: Supple, trachea midline. No JVD or lymphadenopathy. CARDIOVASCULAR: Regular rate and rhythm without murmurs, gallops, or rubs. RESPIRATORY: Breath sounds equal bilaterally. No accessory muscle use. Bilat rales GASTROINTESTINAL: Abdomen soft, non-tender, nondistended. MUSCULOSKELETAL: No cyanosis, or edema. BACK: Nontender without obvious deformity. No CVA tenderness. A/P Assessment and Plan Bilat interstitial infilt related to chemo Resp insuff Hypoxia Metastatic lung ca H/O ca breast PLAN: NRB, keep sat >90% IV Steroids Aerosol nebs Cont Abx for now Haja Reynoso MD May 27, 2016 18:12
[2016-05-27] MEDS: VANCOMYCIN 1,000 MG/NS 250 ML IV SCH ×2 (22:42)
[2016-05-28] VITALS (8 sets, daily range): BP systolic 106–146; BP diastolic 55–74; PULSE 75–94; RESP 14–20; TEMP 93.9–98.4; O2SAT 91–99
[2016-05-28] MEDS: PIPERACIL-TAZO 4.5 GM PREMIX 100 ML IV SCH ×4 (03:56→20:22)
[2016-05-28] MEDS: methylPREDNISolone SOD SUCC 125 MG/2 ML VIAL IV PUSH SCH ×3 (03:57→20:22)
[2016-05-28] MEDS: ENOXAPARIN SODIUM 40 MG/0.4 ML SYRINGE SQ SCH (07:23)
[2016-05-28] MEDS: LEVOTHYROXINE SODIUM 25 MCG TAB PO SCH (07:23)
[2016-05-28] MEDS: SODIUM CHLOR 0.9% 1000 ML INJ 1,000 ML IV SCH ×2 (09:00→20:22)
[2016-05-28] MEDS: PANTOPRAZOLE SOD 40 MG DELAYED RELEASE TAB PO SCH (09:45)
[2016-05-28] MEDS: LOSARTAN 50 MG TAB PO SCH (09:45)
[2016-05-28] MEDS: ASPIRIN EC 81 MG TABEC PO SCH (09:45)
[2016-05-28] MEDS: TOPIRAMATE 25 MG TAB PO SCH ×2 (09:46→20:22)
--- NOTE | 2016-05-28 10:32 | PD.ONC.PN ---
Subjective Subjective Remarks Afebrile overnight. Patient states she feels like her breathing is about the same. She is still having diarrhea. She denies pain. Objective Data Date Time Temp Pulse Resp B/P Pulse Ox O2 Delivery O2 Flow Rate FiO2 05/28/16 07:57 96.2 90 20 146/67 92 05/28/16 05:54 95 Partial Non-Rebreather 15.00 05/28/16 04:00 98.4 85 16 111/58 99 05/28/16 02:11 99 Partial Non-Rebreather 15.00 05/28/16 00:00 97.8 75 14 123/62 98 05/28/16 00:00 97 Partial Non-Rebreather 15.00 05/27/16 23:27 97 Partial Non-Rebreather 15.00 05/27/16 20:34 99 Partial Non-Rebreather 15.00 05/27/16 20:00 96.0 76 16 139/66 93 05/27/16 18:26 95 Partial Rebreather 15.00 05/27/16 16:00 95.8 81 20 110/53 90 05/27/16 13:54 98 Non-Rebreather 15.00 100 05/27/16 12:00 95.8 82 18 113/57 99 Result Diagram: 05/25/16 1440 05/27/16 0718 Administered Medications Medications (Trade) Dose Ordered Sig/Ursula Route PRN Reason Start Time Stop Time Status Last Admin Dose Admin Methylprednisolone Sodium Succinate 60 mg 60 mg Q8H IV PUSH 05/25/16 20:00 05/28/16 03:57 Sodium Chloride 1,000 ml @ 100 mls/hr Q10H IV 05/25/16 21:00 05/28/16 09:00 Piperacillin Sod/ Tazobactam Sod (Zosyn 4.5 Gm Premix) 100 ml @ 200 mls/hr Q6H IV 05/25/16 21:00 05/28/16 09:44 Aspirin (Ecotrin Ec) 81 mg DAILY PO 05/26/16 09:00 05/28/16 09:45 Levothyroxine Sodium (Synthroid) 25 mcg DAILY@06 PO 05/26/16 06:00 05/28/16 07:23 Losartan Potassium (Cozaar) 50 mg DAILY PO 05/26/16 09:00 05/28/16 09:45 Topiramate (Topamax) 50 mg BID PO 05/25/16 22:45 05/28/16 09:46 Enoxaparin Sodium (Lovenox Inj) 40 mg Q24H SQ 05/26/16 06:00 05/28/16 07:23 Pantoprazole Sodium 40 mg 40 mg DAILY PO 05/26/16 09:00 05/28/16 09:45 Vancomycin HCl/ Sodium Chloride (Vancomycin Inj/ NS 250 ml Inj) 250 ml @ 250 mls/hr Q24H IV 05/26/16 22:00 05/27/16 22:42 Lactobacillus Acidophilus (Lactinex) 1 tab Q8H PRN PO diarrhea 05/26/16 15:15 05/26/16 15:58 Acetaminophen/ Hydrocodone Bitart ([place] 10-325 Mg) 1 tab Q4H PRN PO PAIN 6-10 05/26/16 22:15 05/27/16 05:22 Objective Remarks GENERAL: Pleasant, elderly female, asleep in bed in no distress. On 15L via NRB mask SKIN: Warm and dry. Port to R chest wall. No oozing. HEAD: Normocephalic. EYES: No injection or drainage. NECK: Supple, trachea midline. CARDIOVASCULAR: Regular rate and rhythm. RESPIRATORY: Lungs clear anteriorly. GASTROINTESTINAL: Abdomen soft, non-tender, nondistended. EXTREMITIES: No cyanosis, or edema. NEUROLOGICAL: Moving all extremities. Alert. No obvious focal deficit. 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 CT shows+ diffuse ground-glass opacities Plan 1. 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 2. Patient is getting methylprednisolone 60 mg IV Q8. This will take a few days to take effect. 3. Attempt to wean O2 as tolerated. 4. C-diff toxin pending Attending Statement The exam, history, and the medical decision-making described in the above note were completed with the assistance of the mid-level provider. I reviewed and agree with the findings presented. I attest that I had a [id number] encounter with the patient on the same day, and personally performed and documented my assessment and findings in the medical record. She is not any better and still requires 100% non rebreather. lungs reveal rales 1/[address] up and she is very frail and weak. picture remains consistent with lung injury from TKI inhibitor-Tagrisso. will continue steroids and wait. can not find any other tx option after attempting literature review. Andreea Vasquez May 28, 2016 10:32 Tyson Ha MD May 28, 2016 16:37
--- NOTE | 2016-05-28 13:38 | HHI.PR ---
Subjective Remarks No chest pain. Has nonproductive cough. No fever or chills. Says she is still sob and she is still requiring the NR mask. No much appetite. No n/v/d/c. Objective Vitals Vital Signs Date Time Temp Pulse Resp B/P Pulse Ox O2 Delivery O2 Flow Rate FiO2 05/28/16 11:35 97.3 89 18 106/55 91 05/28/16 07:57 96.2 90 20 146/67 92 05/28/16 05:54 95 Partial Non-Rebreather 15.00 05/28/16 04:00 98.4 85 16 111/58 99 05/28/16 02:11 99 Partial Non-Rebreather 15.00 05/28/16 00:00 97.8 75 14 123/62 98 05/28/16 00:00 97 Partial Non-Rebreather 15.00 05/27/16 23:27 97 Partial Non-Rebreather 15.00 05/27/16 20:34 99 Partial Non-Rebreather 15.00 05/27/16 20:00 96.0 76 16 139/66 93 05/27/16 18:26 95 Partial Rebreather 15.00 05/27/16 16:00 95.8 81 20 110/53 90 05/27/16 13:54 98 Non-Rebreather 15.00 100 I/O 05/27/16 05/27/16 05/27/16 05/28/16 05/28/16 05/28/16 07:00 15:00 23:00 07:00 15:00 23:00 Intake Total 120 ml 4216 ml 360 ml 1395 ml Balance 120 ml 4216 ml 360 ml 1395 ml Intake Oral 120 ml 360 ml 360 ml IV Total 3856 ml 1395 ml # Voids 1 4 2 # Bowel Movements 0 1 Result Diagram: 05/25/16 1440 05/27/1618 Imaging Last Impressions [facility] 05/25/16 1302 Signed Impressions: Service Date/Time: Wednesday, May 25, 2016 15:42 - CONCLUSION: Widespread metastatic disease without obvious cord compression. Subtle cord involvement and possible meningeal spread, dural carcinomatosis cannot be excluded on this screening exam. Alex Barrow MD FACR CT Angiography 05/25/16 1302 Signed Impressions: Service Date/Time: Wednesday, May 25, 2016 16:53 - CONCLUSION: 1. Very abnormal appearance of the lungs with symmetric, predominantly perihilar ground glass density and interstitial prominence suggesting a hypersensitivity pneumonitis or other reactive process. 2. In addition, confluent airspace process in the medial aspect of the left base may represent atelectasis or early infiltrate. 3. 4 cm lipoma in the paramidline base of the right neck. 4. Parapelvic cysts in the left kidney John Andrade MD Pelvis X-Ray 05/25/16 0000 Signed Impressions: Service Date/Time: Wednesday, May 25, 2016 15:17 - CONCLUSION: 1. No acute fracture or dislocation. 2. Mixed lytic and sclerotic lesion involving the medial aspect of the right iliac bone as well as probable sclerotic lesions involving the right upper sacrum in the S1 segment and the superior medial aspect of the left iliac crest. If there has been no outside imaging evaluating these lesions, bone scan may be helpful for further evaluation. Jovanny Garcia MD Objective Remarks GENERAL: This is a pleasant elderly female patient, in no apparent distress. SKIN: No rashes, ecchymoses or lesions. Cool and dry. HEAD: Atraumatic. Normocephalic. EYES: No scleral icterus. No injection or drainage. ENT: Nose without bleeding, purulent drainage. NECK: Trachea midline. No JVD or lymphadenopathy. CARDIOVASCULAR: Regular rate and rhythm without murmurs, gallops, or rubs. RESPIRATORY: Breath sounds with diminished breath sounds, equal bilaterally. No wheezes, rales, or rhonchi. Respiratory rate = 22. GASTROINTESTINAL: Abdomen soft, non-tender, nondistended. No guarding. MUSCULOSKELETAL: Extremities without clubbing, cyanosis, or edema. No calf tenderness. NEUROLOGICAL: Awake but drowsy. Motor and sensory grossly within normal limits. Normal speech. A/P Problem List: (1) Sepsis ICD Code: A41.9 Status: Acute (2) Pneumonia ICD Code: J18.9 Status: Acute (3) Acute hypoxemic respiratory failure ICD Code: J96.01 Status: Acute (4) Dehydration ICD Code: E86.0 Status: Acute (5) Weakness ICD Code: R53.1 Status: Acute Assessment and Plan Mrs. Metz is a 71-year-old female with a past medical history of left breast cancer status post mastectomy 1988 and stage IV lung cancer diagnosed in 2011 treated with chemotherapy and radiation for brain metastases who was sent from oncologist Dr. Ha' office this morning for evaluation of hypoxia and severe fatigue. CT pulmonary angiogram revealed abnormal appearance of the lungs- film personally reviewed and appears consistent with pneumonia. Sepsis - Respiratory rate greater than 22, tachycardic, pneumonia on CT angiogram - meets sepsis criteria - Lactic acid 1.5, WBC 11.1 with neutrophilia on admission, we'll repeat labs , follow trends - Vancomycin IV with pharmacy consult to assist with therapeutic monitoring and dosing - Zosyn 4.5 g IV every 6 hours - IV fluid hydration with normal saline at 100 cc per hour for maintenance received 1740 cc IV fluid bolus on admission Pneumonia/ Pneumonitis Acute hypoxemic respiratory failure - Duo nebulizers every 4 hours when necessary shortness of breath - Supplemental oxygen via nasal cannula titrated to maintain oxygen saturation greater than 92%. On NRM, keeo O2 sat >90%. Pulm also following. - Solu-Medrol 60 mg IV every 8 hours as ordered by Dr. Ha, taper as tolerated Dehydration - IV fluid hydration with normal saline at 100 cc per hour Weakness - Consult physical therapy Stage IV lung cancer - We will consult patient's oncologist Dr. aH; appreciate his assistance MRI spine with multiple sites of mets GERD - Protonix 40 mg p.o. q24h DVT prophylaxis - Lovenox 40 mg subcutaneous every 24 hours Discussed Condition With Patient, nurse Ghada Winters MD May 28, 2016 13:38
[2016-05-28 14:05] LABS: AUTOMATED NEUTROPHIL # 18.9 TH/MM3 (1.8-7.7); BASOPHIL % 0.1 % (0.0-2.0); HEMATOCRIT 33.5 % (35.0-46.0); HEMO FLAGS DIFF FINAL; LYMPH % 2.2 % (9.0-44.0); LYMPHOCYTE # 0.4 TH/MM3 (1.0-4.8); MEAN CELL VOLUME 90.1 FL (80.0-100.0); MEAN CORPUSCULAR HEMOGLOBIN 30.5 PG (27.0-34.0); MEAN CORPUSCULAR HGB CONC 33.9 % (32.0-36.0); MONO % 3.7 % (0.0-8.0); PLATELET COUNT 279 TH/MM3 (150-450); RED BLOOD COUNT 3.71 MIL/MM3 (4.00-5.30); RED CELL DISTRIBUTION WIDTH 14.4 % (11.6-17.2); WHITE BLOOD COUNT 20.1 TH/MM3 (4.0-11.0)
[2016-05-28] MEDS ORDERED: PHARMACY ORDERED LAB XX ONE (21:45)
[2016-05-28 23:14] LABS: BICARBONATE 23.3 MEQ/L (21.0-32.0); VANCOMYCIN TROUGH 8.4 MCG/ML (5.0-10.0)
[2016-05-29] VITALS (12 sets, daily range): BP systolic 129–147; BP diastolic 60–73; PULSE 72–102; RESP 20–21; TEMP 95.5–97.6; O2SAT 94–99
[2016-05-29] MEDS: VANCOMYCIN 1,000 MG/NS 250 ML IV SCH ×4 (00:22→17:19)
[2016-05-29] MEDS: PIPERACIL-TAZO 4.5 GM PREMIX 100 ML IV SCH ×4 (03:15→20:38)
[2016-05-29] MEDS: methylPREDNISolone SOD SUCC 125 MG/2 ML VIAL IV PUSH SCH ×2 (04:01→12:12)
[2016-05-29] MEDS: SODIUM CHLOR 0.9% 1000 ML INJ 1,000 ML IV SCH (05:36)
[2016-05-29] MEDS: ENOXAPARIN SODIUM 40 MG/0.4 ML SYRINGE SQ SCH (05:36)
[2016-05-29] MEDS: LEVOTHYROXINE SODIUM 25 MCG TAB PO SCH (05:36)
[2016-05-29] MEDS: LOSARTAN 50 MG TAB PO SCH (10:02)
[2016-05-29] MEDS: TOPIRAMATE 25 MG TAB PO SCH ×2 (10:02→20:39)
[2016-05-29] MEDS: PANTOPRAZOLE SOD 40 MG DELAYED RELEASE TAB PO SCH (10:03)
[2016-05-29] MEDS: ASPIRIN EC 81 MG TABEC PO SCH (10:04)
[2016-05-29] MEDS ORDERED: POTASSIUM CHLORIDE 20 MEQ CONTROLLED RELEASE TAB PO ONE (10:15)
--- NOTE | 2016-05-29 10:18 | PD.ONC.PN ---
Subjective Subjective Remarks Afebrile overnight. Pt resting in bed with eyes closed. She states she feels about the same. Per RN she desaturates quickly when she is taken off her oxygen. Objective Data Date Time Temp Pulse Resp B/P Pulse Ox O2 Delivery O2 Flow Rate FiO2 05/29/16 07:50 95.5 88 20 147/71 95 05/29/16 06:35 88 05/29/16 04:00 97.3 80 20 140/66 94 05/29/16 00:00 97.5 102 20 129/60 99 05/28/16 22:10 Non-Rebreather 05/28/16 20:00 97.9 94 20 139/74 99 05/28/16 19:13 98 Partial Rebreather 15.00 05/28/16 15:40 93.9 90 20 117/55 99 05/28/16 11:35 97.3 89 18 106/55 91 05/29/16 05/29/16 05/29/16 07:00 15:00 23:00 Intake Total 1650 ml Balance 1650 ml Result Diagram: 05/28/16 1347 05/29/16 0535 Laboratory Results Laboratory Tests Test 05/28/16 05/28/16 05/29/16 13:47 21:55 05:35 White Blood Count 20.1 TH/MM3 Red Blood Count 3.71 MIL/MM3 Hemoglobin 11.3 GM/DL Hematocrit 33.5 % Mean Corpuscular Volume 90.1 FL Mean Corpuscular Hemoglobin 30.5 PG Mean Corpuscular Hemoglobin 33.9 % Concent Red Cell Distribution Width 14.4 % Platelet Count 279 TH/MM3 Mean Platelet Volume 8.4 FL Neutrophils (%) (Auto) 94.0 % Lymphocytes (%) (Auto) 2.2 % Monocytes (%) (Auto) 3.7 % Eosinophils (%) (Auto) 0.0 % Basophils (%) (Auto) 0.1 % Neutrophils # (Auto) 18.9 TH/MM3 Lymphocytes # (Auto) 0.4 TH/MM3 Monocytes # (Auto) 0.7 TH/MM3 Eosinophils # (Auto) 0.0 TH/MM3 Basophils # (Auto) 0.0 TH/MM3 CBC Comment DIFF FINAL Differential Comment Sodium Level 142 MEQ/L Potassium Level 3.0 MEQ/L Chloride Level 110 MEQ/L Carbon Dioxide Level 23.3 MEQ/L Anion Gap 9 MEQ/L Blood Urea Nitrogen 24 MG/DL Creatinine 0.98 MG/DL 0.78 MG/DL Estimat Glomerular Filtration 56 ML/MIN 72 ML/MIN Rate Random Glucose 183 MG/DL Calcium Level 8.0 MG/DL Vancomycin Level Trough 8.4 MCG/ML Imaging Studies Last Impressions [facility] 05/25/16 1302 Signed Impressions: Service Date/Time: Wednesday, May 25, 2016 15:42 - CONCLUSION: Widespread metastatic disease without obvious cord compression. Subtle cord involvement and possible meningeal spread, dural carcinomatosis cannot be excluded on this screening exam. Alex Barrow MD FACR CT Angiography 05/25/16 1302 Signed Impressions: Service Date/Time: Wednesday, May 25, 2016 16:53 - CONCLUSION: 1. Very abnormal appearance of the lungs with symmetric, predominantly perihilar ground glass density and interstitial prominence suggesting a hypersensitivity pneumonitis or other reactive process. 2. In addition, confluent airspace process in the medial aspect of the left base may represent atelectasis or early infiltrate. 3. 4 cm lipoma in the paramidline base of the right neck. 4. Parapelvic cysts in the left kidney John Andrade MD Pelvis X-Ray 05/25/16 0000 Signed Impressions: Service Date/Time: Wednesday, May 25, 2016 15:17 - CONCLUSION: 1. No acute fracture or dislocation. 2. Mixed lytic and sclerotic lesion involving the medial aspect of the right iliac bone as well as probable sclerotic lesions involving the right upper sacrum in the S1 segment and the superior medial aspect of the left iliac crest. If there has been no outside imaging evaluating these lesions, bone scan may be helpful for further evaluation. Jovanny Garcia MD Administered Medications Medications (Trade) Dose Ordered Sig/Ursula Route PRN Reason Start Time Stop Time Status Last Admin Dose Admin Methylprednisolone Sodium Succinate 60 mg 60 mg Q8H IV PUSH 05/25/16 20:00 05/29/16 04:01 Sodium Chloride 1,000 ml @ 100 mls/hr Q10H IV 05/25/16 21:00 05/29/16 05:36 Piperacillin Sod/ Tazobactam Sod (Zosyn 4.5 Gm Premix) 100 ml @ 200 mls/hr Q6H IV 05/25/16 21:00 2/12/17 09:57 Aspirin (Ecotrin Ec) 81 mg DAILY PO 05/26/16 09:00 05/29/16 10:04 Levothyroxine Sodium (Synthroid) 25 mcg DAILY@06 PO 05/26/16 06:00 05/29/16 05:36 Losartan Potassium (Cozaar) 50 mg DAILY PO 05/26/16 09:00 05/29/16 10:02 Topiramate (Topamax) 50 mg BID PO 05/25/16 22:45 05/29/16 10:02 Enoxaparin Sodium (Lovenox Inj) 40 mg Q24H SQ 05/26/16 06:00 05/29/16 05:36 Pantoprazole Sodium (Protonix) 40 mg DAILY PO 05/26/16 09:00 05/29/16 10:03 Lactobacillus Acidophilus (Lactinex) 1 tab Q8H PRN PO diarrhea 05/26/16 15:15 05/26/16 15:58 Acetaminophen/ Hydrocodone Bitart 1 tab 1 tab Q4H PRN PO PAIN 6-10 05/26/16 22:15 05/27/16 05:22 Vancomycin HCl/ Sodium Chloride (Vancomycin Inj/ NS 250 ml Inj) 250 ml @ 250 mls/hr Q18H IV 05/29/16 00:00 05/29/16 00:22 Objective Remarks GENERAL: Pleasant, elderly female, awake in bed in no distress. On 15L via NRB mask SKIN: Warm and dry. Port to R chest wall. No oozing. HEAD: Normocephalic. EYES: No injection or drainage. NECK: Supple, trachea midline. CARDIOVASCULAR: Regular rate and rhythm. RESPIRATORY: Fine crackles heard to bilateral lower lobes. Remains on 15L partial NRB. GASTROINTESTINAL: Abdomen soft, non-tender, nondistended. EXTREMITIES: No cyanosis, or edema. NEUROLOGICAL: Moving all extremities. Alert. No obvious focal deficit. 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 CT shows+ diffuse ground-glass opacities Plan 1. Pneumonitis likely associated with use of TKI Tagrisso. 2. Patient is getting methylprednisolone 60 mg IV Q8. We will continue at this dose for another day or so. She does not seem better today. 3. Attempt to wean O2 as tolerated. Request placed to RT. 4. C-diff toxin pending Attending Statement The exam, history, and the medical decision-making described in the above note were completed with the assistance of the mid-level provider. I reviewed and agree with the findings presented. I attest that I had a [id number] encounter with the patient on the same day, and personally performed and documented my assessment and findings in the medical record. I do not see any improvement. in am will decrease solumedral to 60 bid and in several days repeat ct of thorax without contrast as a chest fill will not provide adequate detail Andreea Vasquez May 29, 2016 10:17 Tyson Ha MD May 29, 2016 14:30
--- NOTE | 2016-05-29 16:39 | HHI.PR ---
Subjective Remarks Patient appears in nad. Says she doesn't feel much improvement,. Says she is coughing up some sputum, minimal. Has no pain . Says she doesn't have much appetite and is not eating much. No fever or chills overnight. No n/v/d/c. Objective Vitals Vital Signs Date Time Temp Pulse Resp B/P Pulse Ox O2 Delivery O2 Flow Rate FiO2 05/29/16 11:40 96.4 72 21 130/73 96 05/29/16 09:30 97 Partial Rebreather 15.00 05/29/16 07:50 95.5 88 20 147/71 95 05/29/16 06:35 88 05/29/16 04:00 97.3 80 20 140/66 94 05/29/16 00:00 97.5 102 20 129/60 99 05/28/16 22:10 Non-Rebreather 05/28/16 20:00 97.9 94 20 139/74 99 05/28/16 19:13 98 Partial Rebreather 15.00 I/O 05/28/16 05/28/16 05/28/16 05/29/16 05/29/16 05/29/16 07:00 15:00 23:00 07:00 15:00 23:00 Intake Total 1395 ml 360 ml 1650 ml Balance 1395 ml 360 ml 1650 ml Intake Oral 360 ml IV Total 1395 ml 1650 ml # Voids 4 5 # Bowel Movements 2 2 Result Diagram: 05/28/16 1347 05/29/16 0535 Imaging Last Impressions [facility] 05/25/16 1302 Signed Impressions: Service Date/Time: Wednesday, May 25, 2016 15:42 - CONCLUSION: Widespread metastatic disease without obvious cord compression. Subtle cord involvement and possible meningeal spread, dural carcinomatosis cannot be excluded on this screening exam. Alex Barrow MD FACR CT Angiography 05/25/16 1302 Signed Impressions: Service Date/Time: Wednesday, May 25, 2016 16:53 - CONCLUSION: 1. Very abnormal appearance of the lungs with symmetric, predominantly perihilar ground glass density and interstitial prominence suggesting a hypersensitivity pneumonitis or other reactive process. 2. In addition, confluent airspace process in the medial aspect of the left base may represent atelectasis or early infiltrate. 3. 4 cm lipoma in the paramidline base of the right neck. 4. Parapelvic cysts in the left kidney John Andrade MD Pelvis X-Ray 05/25/16 0000 Signed Impressions: Service Date/Time: Wednesday, May 25, 2016 15:17 - CONCLUSION: 1. No acute fracture or dislocation. 2. Mixed lytic and sclerotic lesion involving the medial aspect of the right iliac bone as well as probable sclerotic lesions involving the right upper sacrum in the S1 segment and the superior medial aspect of the left iliac crest. If there has been no outside imaging evaluating these lesions, bone scan may be helpful for further evaluation. Jovanny Garcia MD Objective Remarks GENERAL: This is a pleasant elderly female patient, in no apparent distress. SKIN: No rashes, ecchymoses or lesions. Cool and dry. HEAD: Atraumatic. Normocephalic. EYES: No scleral icterus. No injection or drainage. ENT: Nose without bleeding, purulent drainage. NECK: Trachea midline. No JVD or lymphadenopathy. CARDIOVASCULAR: Regular rate and rhythm without murmurs, gallops, or rubs. RESPIRATORY: Breath sounds with diminished breath sounds, equal bilaterally. No wheezes, rales, or rhonchi. Respiratory rate = 22. GASTROINTESTINAL: Abdomen soft, non-tender, nondistended. No guarding. MUSCULOSKELETAL: Extremities without clubbing, cyanosis, or edema. No calf tenderness. NEUROLOGICAL: Awake but drowsy. Motor and sensory grossly within normal limits. Normal speech. A/P Problem List: (1) Sepsis ICD Code: A41.9 Status: Acute (2) Pneumonia ICD Code: J18.9 Status: Acute (3) Acute hypoxemic respiratory failure ICD Code: J96.01 Status: Acute (4) Dehydration ICD Code: E86.0 Status: Acute (5) Weakness ICD Code: R53.1 Status: Acute Assessment and Plan Mrs. Metz is a 71-year-old female with a past medical history of left breast cancer status post mastectomy 1988 and stage IV lung cancer diagnosed in 2011 treated with chemotherapy and radiation for brain metastases who was sent from oncologist Dr. Ha' office this morning for evaluation of hypoxia and severe fatigue. CT pulmonary angiogram revealed abnormal appearance of the lungs- film personally reviewed and appears consistent with pneumonia. Sepsis - Respiratory rate greater than 22, tachycardic, pneumonia on CT angiogram - meets sepsis criteria - Lactic acid 1.5, WBC 11.1 with neutrophilia on admission, we'll repeat labs , follow trends - Vancomycin IV with pharmacy consult to assist with therapeutic monitoring and dosing - Zosyn 4.5 g IV every 6 hours - IV fluid hydration with normal saline at 100 cc per hour for maintenance received 1740 cc IV fluid bolus on admission Pneumonia/ Pneumonitis. Pneumonitis likely associated with use of TKI Tagrisso. Acute hypoxemic respiratory failure - Duo nebulizers every 4 hours when necessary shortness of breath - Supplemental oxygen via nasal cannula titrated to maintain oxygen saturation greater than 92%. On NRM, keep O2 sat >90%. Pulm also following. - Solu-Medrol 60 mg IV every 8 hours as ordered by Dr. Ha, taper as tolerated Dehydration - IV fluid hydration with normal saline at 100 cc per hour Weakness - Consult physical therapy Stage IV lung cancer - Consult patient's oncologist Dr. Ha; appreciate his assistance MRI spine with multiple sites of mets Plan to repeat CT scan per oncology GERD - Protonix 40 mg p.o. q24h DVT prophylaxis - Lovenox 40 mg subcutaneous every 24 hours Discussed Condition With Patient, nurse Poor prognosis. Will consider palliative care on consult. Ghada Winters MD May 29, 2016 16:39
[2016-05-30] VITALS (8 sets, daily range): BP systolic 136–154; BP diastolic 69–81; PULSE 91–108; RESP 20–22; TEMP 96.2–97.8; O2SAT 91–96
[2016-05-30 00:10] LABS: BICARBONATE 22.6 MEQ/L (21.0-32.0); MAGNESIUM 1.9 MG/DL (1.5-2.5); POTASSIUM 3.2 MEQ/L (3.5-5.1)
[2016-05-30] MEDS ORDERED: POTASSIUM CL 40 MEQ/30 ML LIQ UDC PO ONE (00:30)
[2016-05-30] MEDS: SODIUM CHLOR 0.9% 1000 ML INJ 1,000 ML IV SCH ×3 (00:37→21:00)
[2016-05-30] MEDS: PIPERACIL-TAZO 4.5 GM PREMIX 100 ML IV SCH ×4 (03:06→22:23)
[2016-05-30] MEDS: ENOXAPARIN SODIUM 40 MG/0.4 ML SYRINGE SQ SCH (05:18)
[2016-05-30] MEDS: LEVOTHYROXINE SODIUM 25 MCG TAB PO SCH (05:18)
[2016-05-30 06:03] LABS: AUTOMATED NEUTROPHIL # 18.8 TH/MM3 (1.8-7.7); BASOPHIL % 0.1 % (0.0-2.0); EOSINOPHIL # 0.2 TH/MM3 (0-0.4); EOSINOPHIL % 0.8 % (0.0-4.0); HEMATOCRIT 31.9 % (35.0-46.0); HEMO FLAGS DIFF FINAL; LYMPH % 2.9 % (9.0-44.0); LYMPHOCYTE # 0.6 TH/MM3 (1.0-4.8); MEAN CELL VOLUME 89.7 FL (80.0-100.0); MEAN CORPUSCULAR HEMOGLOBIN 29.9 PG (27.0-34.0); MEAN CORPUSCULAR HGB CONC 33.3 % (32.0-36.0); MONO % 3.9 % (0.0-8.0); NEUT % 92.3 % (16.0-70.0); PLATELET COUNT 263 TH/MM3 (150-450); RED BLOOD COUNT 3.56 MIL/MM3 (4.00-5.30); RED CELL DISTRIBUTION WIDTH 14.4 % (11.6-17.2); WHITE BLOOD COUNT 20.3 TH/MM3 (4.0-11.0)
[2016-05-30 06:21] LABS: BICARBONATE 22.9 MEQ/L (21.0-32.0); MAGNESIUM 1.8 MG/DL (1.5-2.5); POTASSIUM 3.6 MEQ/L (3.5-5.1)
[2016-05-30] MEDS: methylPREDNISolone SOD SUCC 125 MG/2 ML VIAL IV PUSH SCH ×2 (09:53→22:22)
[2016-05-30] MEDS: TOPIRAMATE 25 MG TAB PO SCH ×2 (09:54→22:23)
[2016-05-30] MEDS: LOSARTAN 50 MG TAB PO SCH (09:54)
[2016-05-30] MEDS: PANTOPRAZOLE SOD 40 MG DELAYED RELEASE TAB PO SCH (09:54)
[2016-05-30] MEDS: ASPIRIN EC 81 MG TABEC PO SCH (09:54)
[2016-05-30] MEDS ORDERED: POTASSIUM PHOSPHATE MONOBASIC 500 MG TAB PO ONE (10:45)
--- NOTE | 2016-05-30 11:54 | PD.ONC.PN ---
Subjective Subjective Remarks Afebrile overnight. Patient very tired today and continuing to have dyspnea. Daughter at bedside. Patient is hungry but has difficulty eating as her O2 drops every time her oxygen mask comes off. Objective Data Date Time Temp Pulse Resp B/P Pulse Ox O2 Delivery O2 Flow Rate FiO2 05/30/16 08:27 97.6 99 20 144/70 96 05/30/16 07:30 93 Partial Rebreather 12.00 05/30/16 07:28 91 05/30/16 04:00 97.3 92 20 136/69 91 05/30/16 00:00 97.6 91 20 151/74 93 05/29/16 22:25 84 05/29/16 22:10 97 Partial Rebreather 12.00 05/29/16 22:00 97 Non-Rebreather 05/29/16 20:00 97.6 82 20 141/71 97 05/29/16 20:00 97.6 82 20 141/71 97 05/29/16 19:56 98 05/29/16 15:35 95.5 85 21 144/69 98 05/30/16 05/30/16 05/30/16 07:00 15:00 23:00 Intake Total 240 ml 1650 ml Balance 240 ml 1650 ml Result Diagram: 05/30/16 0545 05/30/16 0545 Laboratory Results Laboratory Tests Test 05/29/16 05/30/16 23:33 05:45 Sodium Level 143 MEQ/L 142 MEQ/L Potassium Level 3.2 MEQ/L 3.6 MEQ/L Chloride Level 111 MEQ/L 110 MEQ/L Carbon Dioxide Level 22.6 MEQ/L 22.9 MEQ/L Anion Gap 9 MEQ/L 9 MEQ/L Blood Urea Nitrogen 15 MG/DL 15 MG/DL Creatinine 0.80 MG/DL 0.77 MG/DL Estimat Glomerular Filtration 70 ML/MIN 73 ML/MIN Rate Random Glucose 137 MG/DL 103 MG/DL Calcium Level 8.3 MG/DL 8.6 MG/DL Magnesium Level 1.9 MG/DL 1.8 MG/DL White Blood Count 20.3 TH/MM3 Red Blood Count 3.56 MIL/MM3 Hemoglobin 10.6 GM/DL Hematocrit 31.9 % Mean Corpuscular Volume 89.7 FL Mean Corpuscular Hemoglobin 29.9 PG Mean Corpuscular Hemoglobin 33.3 % Concent Red Cell Distribution Width 14.4 % Platelet Count 263 TH/MM3 Mean Platelet Volume 8.5 FL Neutrophils (%) (Auto) 92.3 % Lymphocytes (%) (Auto) 2.9 % Monocytes (%) (Auto) 3.9 % Eosinophils (%) (Auto) 0.8 % Basophils (%) (Auto) 0.1 % Neutrophils # (Auto) 18.8 TH/MM3 Lymphocytes # (Auto) 0.6 TH/MM3 Monocytes # (Auto) 0.8 TH/MM3 Eosinophils # (Auto) 0.2 TH/MM3 Basophils # (Auto) 0.0 TH/MM3 CBC Comment DIFF FINAL Differential Comment Phosphorus Level 1.3 MG/DL Administered Medications Medications (Trade) Dose Ordered Sig/Ursula Route PRN Reason Start Time Stop Time Status Last Admin Dose Admin Sodium Chloride 1,000 ml @ 100 mls/hr Q10H IV 05/25/16 21:00 05/30/16 00:37 Piperacillin Sod/ Tazobactam Sod (Zosyn 4.5 Gm Premix) 100 ml @ 200 mls/hr Q6H IV 05/25/16 21:00 05/30/16 09:52 Aspirin (Ecotrin Ec) 81 mg DAILY PO 05/26/16 09:00 05/30/16 09:54 Levothyroxine Sodium (Synthroid) 25 mcg DAILY@06 PO 05/26/16 06:00 05/30/16 05:18 Losartan Potassium (Cozaar) 50 mg DAILY PO 05/26/16 09:00 05/30/16 09:54 Topiramate (Topamax) 50 mg BID PO 05/25/16 22:45 05/30/16 09:54 Enoxaparin Sodium (Lovenox Inj) 40 mg Q24H SQ 05/26/16 06:00 05/30/16 05:18 Pantoprazole Sodium (Protonix) 40 mg DAILY PO 05/26/16 09:00 05/30/16 09:54 Lactobacillus Acidophilus (Lactinex) 1 tab Q8H PRN PO diarrhea 05/26/16 15:15 05/26/16 15:58 Acetaminophen/ Hydrocodone Bitart 1 tab 1 tab Q4H PRN PO PAIN 6-10 05/26/16 22:15 05/27/16 05:22 Vancomycin HCl/ Sodium Chloride (Vancomycin Inj/ NS 250 ml Inj) 250 ml @ 250 mls/hr Q18H IV 05/29/16 00:00 05/29/16 17:19 Methylprednisolone Sodium Succinate (SoluMEDROL INJ) 60 mg BID IV PUSH 05/30/16 09:00 05/30/16 09:53 Objective Remarks GENERAL: This is a very frail elderly female, lying in bed, appears very weak. on 12L O2 via NRB mask SKIN: Warm and dry. HEAD: Normocephalic. EYES: No injection or drainage. NECK: Supple, trachea midline. CARDIOVASCULAR: Regular rate and rhythm RESPIRATORY: diffuse dry crackles in bilateral bases GASTROINTESTINAL: Abdomen soft, non-tender, nondistended. EXTREMITIES: No cyanosis NEUROLOGICAL: awake and alert. 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 most recent treatment was TKI Plan 1. would continue solu-medrol 60mg IV q 12. I think any dose higher than this will not add additional benefit but will add additional risk of adverse effects 2. the patient does not seem to be improving. However, I think it is worth it to continue trying the steroids as they are her only shot. 3. I asked the nurse to send her stool for C. diff testing. Lissette Gerber May 30, 2016 11:54 Tyson Ha MD Jun 03, 2016 21:12
--- NOTE | 2016-05-30 12:48 | HHI.PR ---
Subjective Remarks Not much improvement since yesterday. Still with sob. Eating better, still decreased appetite. No n/v/d/c. Denies cp, palpitations. Noted soem PVCs on telemetry. Replace K and mag. No fever or chills. Objective Vitals Vital Signs Date Time Temp Pulse Resp B/P Pulse Ox O2 Delivery O2 Flow Rate FiO2 05/30/16 12:35 96.9 106 20 153/73 91 05/30/16 08:27 97.6 99 20 144/70 96 05/30/16 07:30 93 Partial Rebreather 12.00 05/30/16 07:28 91 05/30/16 04:00 97.3 92 20 136/69 91 05/30/16 00:00 97.6 91 20 151/74 93 05/29/16 22:25 84 05/29/16 22:10 97 Partial Rebreather 12.00 05/29/16 22:00 97 Non-Rebreather 05/29/16 20:00 97.6 82 20 141/71 97 05/29/16 20:00 97.6 82 20 141/71 97 05/29/16 19:56 98 05/29/16 15:35 95.5 85 21 144/69 98 I/O 05/29/16 05/29/16 05/29/16 05/30/16 05/30/16 05/30/16 07:00 15:00 23:00 07:00 15:00 23:00 Intake Total 1890 ml 240 ml 1650 ml Balance 1890 ml 240 ml 1650 ml Intake Oral 240 ml 240 ml IV Total 1650 ml 1650 ml # Voids 12 5 # Bowel Movements 3 Result Diagram: 05/30/16 0545 05/30/16 0545 Imaging Last Impressions [facility] MRI 05/25/16 1302 Signed Impressions: Service Date/Time: Wednesday, May 25, 2016 15:42 - CONCLUSION: Widespread metastatic disease without obvious cord compression. Subtle cord involvement and possible meningeal spread, dural carcinomatosis cannot be excluded on this screening exam. Alex Barrow MD FACR CT Angiography 05/25/16 1302 Signed Impressions: Service Date/Time: Wednesday, May 25, 2016 16:53 - CONCLUSION: 1. Very abnormal appearance of the lungs with symmetric, predominantly perihilar ground glass density and interstitial prominence suggesting a hypersensitivity pneumonitis or other reactive process. 2. In addition, confluent airspace process in the medial aspect of the left base may represent atelectasis or early infiltrate. 3. 4 cm lipoma in the paramidline base of the right neck. 4. Parapelvic cysts in the left kidney John Andrade MD Pelvis X-Ray 05/25/16 0000 Signed Impressions: Service Date/Time: Wednesday, May 25, 2016 15:17 - CONCLUSION: 1. No acute fracture or dislocation. 2. Mixed lytic and sclerotic lesion involving the medial aspect of the right iliac bone as well as probable sclerotic lesions involving the right upper sacrum in the S1 segment and the superior medial aspect of the left iliac crest. If there has been no outside imaging evaluating these lesions, bone scan may be helpful for further evaluation. Jovanny Garcia MD Objective Remarks GENERAL: This is a pleasant elderly female patient, in no apparent distress. SKIN: No rashes, ecchymoses or lesions. Cool and dry. HEAD: Atraumatic. Normocephalic. EYES: No scleral icterus. No injection or drainage. ENT: Nose without bleeding, purulent drainage. NECK: Trachea midline. No JVD or lymphadenopathy. CARDIOVASCULAR: Regular rate and rhythm without murmurs, gallops, or rubs. RESPIRATORY: Breath sounds with diminished breath sounds, equal bilaterally. No wheezes, rales, or rhonchi. Respiratory rate = 22. GASTROINTESTINAL: Abdomen soft, non-tender, nondistended. No guarding. MUSCULOSKELETAL: Extremities without clubbing, cyanosis, or edema. No calf tenderness. NEUROLOGICAL: Awake but drowsy. Motor and sensory grossly within normal limits. Normal speech. A/P Problem List: (1) Sepsis ICD Code: A41.9 Status: Acute (2) Pneumonia ICD Code: J18.9 Status: Acute (3) Acute hypoxemic respiratory failure ICD Code: J96.01 Status: Acute (4) Dehydration ICD Code: E86.0 Status: Acute (5) Weakness ICD Code: R53.1 Status: Acute Assessment and Plan Mrs. Metz is a 71-year-old female with a past medical history of left breast cancer status post mastectomy 1988 and stage IV lung cancer diagnosed in 2011 treated with chemotherapy and radiation for brain metastases who was sent from oncologist Dr. Ha' office this morning for evaluation of hypoxia and severe fatigue. CT pulmonary angiogram revealed abnormal appearance of the lungs- film personally reviewed and appears consistent with pneumonia. Sepsis - Respiratory rate greater than 22, tachycardic, pneumonia on CT angiogram - meets sepsis criteria - Lactic acid 1.5, WBC 11.1 with neutrophilia on admission, we'll repeat labs , follow trends - Vancomycin IV with pharmacy consult to assist with therapeutic monitoring and dosing - Zosyn 4.5 g IV every 6 hours - IV fluid hydration with normal saline at 100 cc per hour for maintenance received 1740 cc IV fluid bolus on admission Pneumonia/ Pneumonitis. Pneumonitis likely associated with use of TKI Tagrisso. Acute hypoxemic respiratory failure - Duo nebulizers every 4 hours when necessary shortness of breath - Supplemental oxygen via nasal cannula titrated to maintain oxygen saturation greater than 92%. On NRM, keep O2 sat >90%. Pulm also following. - Solu-Medrol 60 mg IV every 8 hours as ordered by Dr. Ha, taper as tolerated Dehydration - IV fluid hydration with normal saline at 100 cc per hour Weakness - Consult physical therapy Stage IV lung cancer - Consult patient's oncologist Dr. Ha; appreciate his assistance MRI spine with multiple sites of mets Repeat CT scan per oncology GERD - Protonix 40 mg p.o. q24h DVT prophylaxis - Lovenox 40 mg subcutaneous every 24 hours Discussed Condition With Patient, nurse, family at bedside Poor prognosis. Will consult palliative care. Ghada Winters MD May 30, 2016 12:48
[2016-05-30] MEDS: VANCOMYCIN 1,000 MG/NS 250 ML IV SCH ×2 (13:18)
[2016-05-30 13:43] LABS: C. DIFF EPI 027 PRESUMPTIVE NEGATIVE (NEGATIVE); C. DIFF TOXIN PCR NEGATIVE (NEGATIVE)
--- NOTE | 2016-05-30 14:33 | PD.CONS ---
Consult Service Palliative Care Consult Requested By Dr. Singh MD Primary Care Physician Tyson Ha MD Reason for Consultation a. To assist with evaluation and management of symptoms including: dyspnea and debility. b. To assist medical decision maker(s) with: better understanding of current medical conditions; weighing benefits/burdens of medical treatment options; making medical treatment decisions. . HPI History of Present Illness Mrs. 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 Patient has received multiple treatments by continue with developing progression of disease. On , patient presented to the emergency room from from her doctor's office secondary to complaints of severe fatigue for 1 week with progressive weakness, shortness of breath on minimal exertion as well as cervical spine pain and intermittent diarrhea. CT pulmonary angiogram on 05/25/16 negative for PE but revealed abnormal appearance of the lungs, MRI of entire spine reveal wide spread metastatic disease without obvious cord compression. Pelvis x-ray negative for acute process, however showing mixed lytic and sclerotic lesions involving the right iliac bone and right upper sacrum. Patient was admitted for management of sepsis, pneumonia, acute hypoxemic respiratory failure, dehydration and weakness. Pulmonary -Dr. Reynoso consulted on 05/26/16 for respiratory insufficiency and lung infiltrate. Dr. Ha consulted for evaluation of stage IV lung cancer and respiratory failure. Patient was felt to have pneumonitis secondary to tyrosine kinase inhibitor -Tagrisso which was started on 02/19/2016. Patient has been placed on high-dose steroids. Case discussed with Lissette GRIFFITH, Medical management plan to is to continue steroids while allowing time for clinical improvement. Unclear at this time if patient will respond to steroids in the setting of her progression of disease. Patient remains highly symptomatic, on a nonrebreather mask at 100%. Palliative care has been consulted for clarifications of goals of care in the setting of progression of disease despite multiple disease specific treatments and complications secondary to kinase inhibitor Tagrisso. Patient has received extensive chemotherapy, oncological treatment includes Tarceva -developed progressive disease. Rocelitinib, and subsequently treated with Nivolumab -developing progressive disease. She was started on Tagrisso on 02/19/16. Patient currently on febrile, hypertensive with SBP in the 140s to 150s. Currently on a nonrebreather facemask at 12 L, satting in the low 90s. Labs today include WBC 20.3, Hgb 10.6, platelet count 263. Sodium 142, K3.6, BUN/ creatinine 15/0.77. Stool sample sent for C. difficile. Patient was seen in his room, laying in bed in moderate distress secondary to tachypnea and increased work of breathing. No family at bedside. Spoke with patient, limited speech secondary to shortness of breath. However able to communicate needs. Patient tells me that she is originally from [facility], has [place] living in the [place] for the past 46 years. She has 2 children, Lulu Landin, they both reside locally. Reviewed prior medical history, progression of disease, and events leading to these hospitalization. Reviewed plan of care to include medical management of pneumonitis and recommendations from oncology to allow time for clinical improvement. Patient with a good understanding of her current condition to include metastatic disease. Patient verbalize knowing that her disease is not curable, but recurrence attempts at symptom management are undergoing. Patient verbalized feeling tired, and " ready to go". Patient feels that her quality of life is very important to her and that her current respiratory condition is now allowing her to live life. Discuss CPR, intubation and mechanical ventilation given her current metastatic disease. Patient electing to be DNR/DNI and to be allowed to naturally. Patient reports no living will or advanced directives have been completed, however, has discussed end-of-life wishes with her family. Ongoing emotional support and active listening provided. Encourage patient to discuss further goals of care/medical management with her family and Dr. Ha. Patient appreciative of my visit today. . Function/Cognitive Trajectory Patient endorses a very severe decline in her functioning status, stating that she was dancing 10 days ago and now is confined to a wheelchair. Progressive weakness debility and shortness of breath in the last week. . Review of Systems ROS Limitations: Clinical Condition ( limited speech secondary to shortness of breath) Constitutional: COMPLAINS OF: Weight loss, Change in appetite, Pain, Generalized weakness Endocrine: COMPLAINS OF: Heat/cold intolerance Eyes: DENIES: Blurred vision Ears, nose, mouth, throat: DENIES: Hearing loss, Vertigo, Nasal discharge Respiratory: COMPLAINS OF: Shortness of breath, DENIES: Cough Cardiovascular: COMPLAINS OF: Dyspnea on Exertion, DENIES: Chest pain, Lower Extremity Edema Gastrointestinal: COMPLAINS OF: Diarrhea, Vomiting, Anorexia Musculoskeletal: COMPLAINS OF: Back pain Hematologic/Lymphatics: DENIES: Bruising Immunologic/Allergic: DENIES: Eczema Neurologic: COMPLAINS OF: Poor Balance, DENIES: Localized weakness Psychiatric: DENIES: Confusion, Agitation Past Family Social History Coded Allergies: Benadryl (Verified Allergy, Unknown, 05/26/16) PM component of Tylenol PM - not allergic to tylenol Uncoded Allergies: EXCEDRIN (Allergy, Severe, DYSPNEA, 06/28/11) LATEX (Allergy, Severe, RASH, 06/28/11) BLANK (Allergy, Severe, RASH, 06/28/11) Past Medical History Last breast cancer, status post mastectomy 1988 Stage IV lung ca with brain mets, status post radiation in 2011 Spinal metastasis discovered in 2016 Hypothyroidism TIA Seizure disorder Syncope Hyperlipidemia Hypertension Bronchitis Gastroesophageal reflux disease . Past Surgical History Mediastinoscopy in 2011 Left modified radical mastectomy in 1988 for breast cancer x 2, in 1973 and 1976 Ovarian tumor removal left thigh biopsy . Reported Medications Topamax Losartan Levothyroxine Hydrocodone/acetaminophen Calcium Aspirin Advil . Current Medications Medications (Trade) Dose Ordered Sig/Ursula Route Start Time Stop Time Status Last Admin (NS Flush) 2 ml UNSCH PRN IVF 05/25/16 13:15 (Tylenol) 650 mg Q4H PRN PO 05/25/16 20:30 Ondansetron HCl 4 mg 4 mg Q8HR PRN IV PUSH 05/25/16 18:15 Sodium Chloride 1,000 ml @ 100 mls/hr Q10H IV 05/25/16 21:00 05/30/16 00:37 Piperacillin Sod/ Tazobactam Sod 100 ml @ 200 mls/hr Q6H IV 05/25/16 21:00 05/30/16 09:52 (Vancomycin Consult Pharmacy) 0 ml @ 0 mls/hr UNSCH OTHER 05/25/16 20:45 (Ecotrin Ec) 81 mg DAILY PO 05/26/16 09:00 05/30/16 09:54 (Synthroid) 25 mcg DAILY@06 PO 05/26/16 06:00 05/30/16 05:18 (Cozaar) 50 mg DAILY PO 05/26/16 09:00 05/30/16 09:54 (Topamax) 50 mg BID PO 05/25/16 22:45 05/30/16 09:54 (Lovenox Inj) 40 mg Q24H SQ 05/26/16 06:00 05/30/16 05:18 (Protonix) 40 mg DAILY PO 05/26/16 09:00 05/30/16 09:54 (Lactinex) 1 tab Q8H PRN PO 05/26/16 15:15 05/26/16 15:58 ([place] 5-325 Mg) 1 tab Q4H PRN PO 05/26/16 22:15 Acetaminophen/ Hydrocodone Bitart 1 tab 1 tab Q4H PRN PO 05/26/16 22:15 05/27/16 05:22 (Vancomycin Inj/ NS 250 ml Inj) 250 ml @ 250 mls/hr Q18H IV 05/29/16 00:00 05/30/16 13:18 Miscellaneous Information SPECIFIC LAB TO BE ... ONCE ONCE XX 05/31/16 05:45 05/31/16 05:46 (SoluMEDROL INJ) 60 mg BID IV PUSH 05/30/16 09:00 05/30/16 09:53 Family History Brother with kidney CA. Patient has 2 daughters which are alive and well. . Substance Use Tobacco: None. Alcohol: Socially. Prescription med abuse: None. Illicits: None. . Psychosocial History Patient originally from [facility], has been living in the for the past 46 years. She is a retired artists. She has 2 daughters from her first marriage, they both live locally.. Currently . . Spiritual/Cultural Factors Caodaism rishi. . Living Will: Never completed Health Care Surrogate: Never completed Durable Power of [employer]: Never completed Health Care Surrogate(s): No healthcare surrogate designation has been completed. As per [place] statute , healthcare proxy decision-making falls to patient's . Patient in agreement of this and declined completing healthcare surrogate designation. Ethical and Legal Issues No ethical legal issues have been identified. . Physical Exam Vital Signs Date Time Temp Pulse Resp B/P Pulse Ox O2 Delivery O2 Flow Rate FiO2 05/30/16 12:35 96.9 106 20 153/73 91 05/30/16 08:27 97.6 99 20 144/70 96 05/30/16 07:30 93 Partial Rebreather 12.00 05/30/16 07:28 91 2/13/17 04:00 97.3 92 20 136/69 91 05/30/16 00:00 97.6 91 20 151/74 93 05/29/16 22:25 84 05/29/16 22:10 97 Partial Rebreather 12.00 05/29/16 22:00 97 Non-Rebreather 05/29/16 20:00 97.6 82 20 141/71 97 05/29/16 20:00 97.6 82 20 141/71 97 05/29/16 19:56 98 05/29/16 15:35 95.5 85 21 144/69 98 05/29/16 05/30/16 19:00 07:00 Intake Total 1890 ml 240 ml Balance 1890 ml 240 ml Intake Oral 240 ml 240 ml IV Total 1650 ml # Voids 12 5 # Bowel Movements 3 Exam CONSTITUTIONAL/GENERAL: This is cachectic, ill-looking female in moderate distress secondary to tachypnea and increased work of breathing. TUBES/LINES/DRAINS: PIV's, SCDs, facemask, SKIN: No jaundice, rashes, or lesions. Ecchymoses on upper extremities. No wounds seen anteriorly. Skin temperature appropriate. Not diaphoretic. HEAD: Atraumatic. Normocephalic. Bilateral temporal wasting noted. EYES: Pupils equal and round and reactive. No scleral icterus. No injection or drainage. ENT: Hearing grossly normal. Nose without bleeding or purulent drainage. Dry oral mucosa and lips. NECK: Trachea midline. Supple, nontender. CARDIOVASCULAR: Regular rate and rhythm without murmurs, gallops, or rubs. No JVD. Peripheral pulses symmetric. RESPIRATORY/CHEST: Tachypnea, increased work of breathing. Using accessory muscles. Clear, diminished to auscultation. GASTROINTESTINAL: Abdomen soft, non-tender, nondistended. Bowel sounds present. GENITOURINARY: Without palpable bladder distension. MUSCULOSKELETAL: Extremities without clubbing, cyanosis, or edema. No mottling or clubbing. NEUROLOGICAL: Awake and alert. Motor and sensory grossly within normal limits. Follows commands. Moves all extremities. Verbal, limited speech secondary to profound shortness of breath. PSYCHIATRIC: No obvious anxiety/depression. Calm. . Diagnostic Tests Laboratory Laboratory Tests Test 05/28/16 05/28/16 05/29/16 05/29/16 13:47 21:55 05:35 23:33 White Blood Count 20.1 TH/MM3 (4.0-11.0) Red Blood Count 3.71 MIL/MM3 (4.00-5.30) Hemoglobin 11.3 GM/DL (11.6-15.3) Hematocrit 33.5 % (35.0-46.0) Mean Corpuscular Volume 90.1 FL (80.0-100.0) Mean Corpuscular Hemoglobin 30.5 PG (27.0-34.0) Mean Corpuscular Hemoglobin 33.9 % Concent (32.0-36.0) Red Cell Distribution Width 14.4 % (11.6-17.2) Platelet Count 279 TH/MM3 (150-450) Mean Platelet Volume 8.4 FL (7.0-11.0) Neutrophils (%) (Auto) 94.0 % (16.0-70.0) Lymphocytes (%) (Auto) 2.2 % (9.0-44.0) Monocytes (%) (Auto) 3.7 % (0.0-8.0) Eosinophils (%) (Auto) 0.0 % (0.0-4.0) Basophils (%) (Auto) 0.1 % (0.0-2.0) Neutrophils # (Auto) 18.9 TH/MM3 (1.8-7.7) Lymphocytes # (Auto) 0.4 TH/MM3 (1.0-4.8) Monocytes # (Auto) 0.7 TH/MM3 (0-0.9) Eosinophils # (Auto) 0.0 TH/MM3 (0-0.4) Basophils # (Auto) 0.0 TH/MM3 (0-0.2) CBC Comment DIFF FINAL Differential Comment Sodium Level 142 MEQ/L 143 MEQ/L (136-145) (136-145) Potassium Level 3.0 MEQ/L 3.2 MEQ/L (3.5-5.1) (3.5-5.1) Chloride Level 110 MEQ/L 111 MEQ/L (98-107) (98-107) Carbon Dioxide Level 23.3 MEQ/L 22.6 MEQ/L (21.0-32.0) (21.0-32.0) Anion Gap 9 MEQ/L (5-15) 9 MEQ/L (5-15) Blood Urea Nitrogen 24 MG/DL (7-18) 15 MG/DL (7-18) Creatinine 0.98 MG/DL 0.78 MG/DL 0.80 MG/DL (0.50-1.00) (0.50-1.00) (0.50-1.00) Estimat Glomerular Filtration 56 ML/MIN (>89) 72 ML/MIN (>89) 70 ML/MIN (>89) Rate Random Glucose 183 MG/DL 137 MG/DL (74-106) (74-106) Calcium Level 8.0 MG/DL 8.3 MG/DL (8.5-10.1) (8.5-10.1) Vancomycin Level Trough 8.4 MCG/ML (5.0-10.0) Magnesium Level 1.9 MG/DL (1.5-2.5) Test 05/30/16 05:45 White Blood Count 20.3 TH/MM3 (4.0-11.0) Red Blood Count 3.56 MIL/MM3 (4.00-5.30) Hemoglobin 10.6 GM/DL (11.6-15.3) Hematocrit 31.9 % (35.0-46.0) Mean Corpuscular Volume 89.7 FL (80.0-100.0) Mean Corpuscular Hemoglobin 29.9 PG (27.0-34.0) Mean Corpuscular Hemoglobin 33.3 % Concent (32.0-36.0) Red Cell Distribution Width 14.4 % (11.6-17.2) Platelet Count 263 TH/MM3 (150-450) Mean Platelet Volume 8.5 FL (7.0-11.0) Neutrophils (%) (Auto) 92.3 % (16.0-70.0) Lymphocytes (%) (Auto) 2.9 % (9.0-44.0) Monocytes (%) (Auto) 3.9 % (0.0-8.0) Eosinophils (%) (Auto) 0.8 % (0.0-4.0) Basophils (%) (Auto) 0.1 % (0.0-2.0) Neutrophils # (Auto) 18.8 TH/MM3 (1.8-7.7) Lymphocytes # (Auto) 0.6 TH/MM3 (1.0-4.8) Monocytes # (Auto) 0.8 TH/MM3 (0-0.9) Eosinophils # (Auto) 0.2 TH/MM3 (0-0.4) Basophils # (Auto) 0.0 TH/MM3 (0-0.2) CBC Comment DIFF FINAL Differential Comment Sodium Level 142 MEQ/L (136-145) Potassium Level 3.6 MEQ/L (3.5-5.1) Chloride Level 110 MEQ/L (98-107) Carbon Dioxide Level 22.9 MEQ/L (21.0-32.0) Anion Gap 9 MEQ/L (5-15) Blood Urea Nitrogen 15 MG/DL (7-18) Creatinine 0.77 MG/DL (0.50-1.00) Estimat Glomerular Filtration 73 ML/MIN (>89) Rate Random Glucose 103 MG/DL (74-106) Calcium Level 8.6 MG/DL (8.5-10.1) Phosphorus Level 1.3 MG/DL (2.5-4.9) Magnesium Level 1.8 MG/DL (1.5-2.5) Result Diagram: 05/30/16 0545 05/30/16 0545 Imaging Last Impressions Entire Spine MRI 05/25/16 1302 Signed Impressions: Service Date/Time: Wednesday, May 25, 2016 15:42 - CONCLUSION: Widespread metastatic disease without obvious cord compression. Subtle cord involvement and possible meningeal spread, dural carcinomatosis cannot be excluded on this screening exam. Alex Barrow MD FACR CT Angiography 05/25/16 1302 Signed Impressions: Service Date/Time: Wednesday, May 25, 2016 16:53 - CONCLUSION: 1. Very abnormal appearance of the lungs with symmetric, predominantly perihilar ground glass density and interstitial prominence suggesting a hypersensitivity pneumonitis or other reactive process. 2. In addition, confluent airspace process in the medial aspect of the left base may represent atelectasis or early infiltrate. 3. 4 cm lipoma in the paramidline base of the right neck. 4. Parapelvic cysts in the left kidney John Andrade MD Pelvis X-Ray 05/25/16 0000 Signed Impressions: Service Date/Time: Wednesday, May 25, 2016 15:17 - CONCLUSION: 1. No acute fracture or dislocation. 2. Mixed lytic and sclerotic lesion involving the medial aspect of the right iliac bone as well as probable sclerotic lesions involving the right upper sacrum in the S1 segment and the superior medial aspect of the left iliac crest. If there has been no outside imaging evaluating these lesions, bone scan may be helpful for further evaluation. Jovanny Garcia MD Patient/Family Conference Present at Family Conference: No family present. Family Conference Location: Bedside Issues Discussed: * Palliative care role, purpose, approach * Additional medical, psychosocial, and spiritual history * Patients general health, functional status, and cognitive changes in the months leading up to the current hospitalization * Patient/family understanding of the current medical problems * Patient/family understanding of prognosis * Patients goals of care as best understood from advance directives and/or conversations and/or values * Current medical treatment options and benefits/burdens of those options * Questions answered to the best of my ability * Palliative care contact information provided . Assessment and Plan Disease Oriented Problem List: (1) Pneumonitis (2) Sepsis (3) Dehydration (4) Acute hypoxemic respiratory failure Symptom Scale: (1) Shortness of breath 0-10 Scale: 10 Comment: Secondary to pneumonitis. (2) Back pain 0-10 Scale: 2 Comment: Secondary to burden of disease/metastasis to spine. (3) Weakness 0-10 Scale: Unable to quantify Comment: Profound debility and progressive weakness, worsened in the last week. Pertinent Non-Medical Issues Psychosocial: Patient is . Has 2 daughters. Now retired. Spiritual: Caodaism rishi. Legal: No living will has been completed. Ethical issues impacting care: No ethical issues have been identified. . Important Contacts Payam Metz [phone]. . Prognosis Mrs. 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 Now found with newly discovered metastases to spine. Patient has received multiple treatments by continue with developing progression of disease. Patient diagnosed with pneumonitis secondary to current chemotherapy agent. Her overall prognosis is poor for an improved quality of life or long-term survival given her progression of disease on multiple agents, progressive physical decline, nutrition status, and acute events. . Code Status: No Code Plan * CODE STATUS: NO CODE -DNR/DNI. -Patient OK with BiPAP if medically indicated. * Decision-making capacity: No healthcare surrogate designation has been completed. As per [place] statute, healthcare proxy decision-making falls to patient's Payam Metz. Patient in agreement of this and declined completing healthcare surrogate designation. * GOALS OF CARE: Patient goal at this time is for ongoing aggressive attempt at disease specific therapy/symptom management while allowing time for clinical improvement. Patient with a good understanding of her current condition and poor prognosis. Patient verbalize knowing that her disease is not curable, but that current attempts at symptom management are undergoing. Patient verbalized feeling tired, and "ready to ". Patient feels that her quality of life is very important to her and that her current respiratory condition and profound physical deconditioning is now allowing her to live to its fullest. Discuss CPR , intubation and mechanical ventilation given her current metastatic disease. Patient electing to be DNR/DNI and to be allowed to naturally. Encourage patient to continue goals of care discussion with her and daughters. As per their request, oncology -Dr. Ha to lead conversation on goals of care/ transition to comfort-directed care given their longitudinal doctor-patient relationship. * SYMPTOMS: == Dyspnea: Secondary to reactive pneumonitis. On Solu-Medrol every 12 hours, shortness of breath not improving. Patient remains very symptomatic, ongoing facemask at 12 L. == Debility: Secondary to burden of disease == Back pain, secondary to burden of disease/spine metastasis. On home regimen of [place] as needed. == Diarrhea, pending C. difficile test results. * Case discussed in great detail with DEIDRE Floyd -Dr. Ha. * Ongoing emotional support and active listening provided. Patient very appreciative of today's visit. * Palliative care contact information has been provided. * Palliative care will continue to follow-up for symptom management and emotional support as needed. . Time Spent Total Floor Time (mins): 82 (Total time to include review and summarization of available medical records, physical exam, bedside conversation with patient regarding goals of care in symptoms, and case discussion with oncology.) Face to Face Time (mins): 60 >50% Counseling/Coord of Care: Yes Thank you for the opportunity to participate in the care of Ms. Metz. Attestation To help prompt me to consider important information that might be impacting today's encounter and assessment, information from prior notes written by myself or my colleagues may have been "brought forward" into today's note. My signature on this note, however, is an attestation that I personally performed the exam, history, and/or decision-making noted today, and, unless otherwise indicated, the interactions with patient, family, and staff as well as the review of records all occurred today. I also attest that the listed assessment and stated plan reflect my best clinical judgment today based on the combination of historical information, prior notes, and today's exam/ interactions. When time spent is documented, it refers only to time spent today by the signer, or if indicated, combined time spent today by collaborating physician/nurse practitioner. Micaela Condon May 30, 2016 14:33
--- NOTE | 2016-05-30 20:37 | HHI.PR ---
Subjective Remarks 71 YO female with NSCLC, metastatic, ca breast On therapy with Tagreesa On NRB Desaturates on NC No Fever Feels little better Appetite poor Objective Vital Signs Vital Signs Date Time Temp Pulse Resp B/P Pulse Ox O2 Delivery O2 Flow Rate FiO2 05/30/16 16:55 97.8 108 22 136/78 95 05/30/16 12:35 96.9 106 20 153/73 91 05/30/16 08:27 97.6 99 20 144/70 96 05/30/16 08:00 96 Partial Non-Rebreather 12.00 05/30/16 07:30 93 Partial Rebreather 12.00 05/30/16 07:28 91 05/30/16 04:00 97.3 92 20 136/69 91 05/30/16 00:00 97.6 91 20 151/74 93 05/29/16 22:25 84 05/29/16 22:10 97 Partial Rebreather 12.00 05/29/16 22:00 97 Non-Rebreather I/O 05/29/16 05/29/16 05/29/16 05/30/16 05/30/16 05/30/16 07:00 15:00 23:00 07:00 15:00 23:00 Intake Total 1890 ml 240 ml 1770 ml 1354 ml Balance 1890 ml 240 ml 1770 ml 1354 ml Intake Oral 240 ml 240 ml 120 ml IV Total 1650 ml 1650 ml 1354 ml # Voids 12 5 8 # Bowel Movements 3 2 Result Diagram: 05/30/16 0545 05/30/16 0545 Objective Remarks GENERAL: MBMN Female, sob SKIN: Warm and dry. HEAD: Normocephalic. EYES: No scleral icterus. No injection or drainage. NECK: Supple, trachea midline. No JVD or lymphadenopathy. CARDIOVASCULAR: Regular rate and rhythm without murmurs, gallops, or rubs. RESPIRATORY: Breath sounds equal bilaterally. No accessory muscle use. Bilat rales GASTROINTESTINAL: Abdomen soft, non-tender, nondistended. MUSCULOSKELETAL: No cyanosis, or edema. BACK: Nontender without obvious deformity. No CVA tenderness. A/P Assessment and Plan Bilat interstitial infilt related to chemo Resp insuff Hypoxia Metastatic lung ca H/O ca breast PLAN: NRB, keep sat >90% IV Steroids Aerosol nebs Cont Abx for now monitor lytes Encourage po intake. Haja Reynoso MD May 30, 2016 20:37
[2016-05-31] VITALS (7 sets, daily range): BP systolic 136–141; BP diastolic 71–75; PULSE 84–104; RESP 18–22; TEMP 97.1–99.2; O2SAT 82–95
[2016-05-31] MEDS: PIPERACIL-TAZO 4.5 GM PREMIX 100 ML IV SCH ×2 (03:00→08:31)
[2016-05-31] MEDS ORDERED: PHARMACY ORDERED LAB XX ONE (05:45)
[2016-05-31] MEDS: ENOXAPARIN SODIUM 40 MG/0.4 ML SYRINGE SQ SCH (05:54)
[2016-05-31] MEDS: LEVOTHYROXINE SODIUM 25 MCG TAB PO SCH (05:54)
[2016-05-31] MEDS: VANCOMYCIN 1,000 MG/NS 250 ML IV SCH ×2 (05:54)
[2016-05-31] MEDS: SODIUM CHLOR 0.9% 1000 ML INJ 1,000 ML IV SCH (07:00)
[2016-05-31] MEDS: LOSARTAN 50 MG TAB PO SCH (08:27)
[2016-05-31] MEDS: TOPIRAMATE 25 MG TAB PO SCH (08:28)
[2016-05-31] MEDS: PANTOPRAZOLE SOD 40 MG DELAYED RELEASE TAB PO SCH (08:28)
[2016-05-31] MEDS: ASPIRIN EC 81 MG TABEC PO SCH (08:29)
[2016-05-31] MEDS: methylPREDNISolone SOD SUCC 125 MG/2 ML VIAL IV PUSH SCH (08:32)
[2016-05-31 08:57] LABS: BLOOD GAS BASE EXCESS 0.2 mmol/L (-2-2); BLOOD GAS CARBOXYHEMOGLOBIN 1.4 % (0-4); BLOOD GAS HCO3 23 mmol/L (22-26); BLOOD GAS METHEMOGLOBIN 0.8 % (0-2); BLOOD GAS O2 HGB SATURATION 92 % (90-100); BLOOD GAS PCO2 32 mmHg (38-42); BLOOD GAS PO2 69 mmHg (61-120); BLOOD GAS TOTAL HGB 10.8 G/DL (12.0-16.0); CRITICAL VALUE NO; TEMP CORR TO 98.6
[2016-05-31 08:58] LABS: DRAW SITE rr; FIO2 100 %; NUMBER OF ARTERIAL PUNCTURES 2; OXYGEN DEVICE NRB; STAT YES; ULNAR PULSE PRESENT
[2016-05-31] MEDS ORDERED: methylPREDNISolone SOD SUCC 125 MG/2 ML VIAL IV PUSH ONE (09:00)
[2016-05-31] MEDS ORDERED: RESP: ALBUTEROL 2.5 MG/IPRATROPIUM 0.5 MG NEB (SCH) NEB ONE (09:00)
[2016-05-31] MEDS ORDERED: RESP: ALBUTEROL 2.5 MG/IPRATROPIUM 0.5 MG NEB (PRN) NEB (09:15)
[2016-05-31] MEDS ORDERED: NYSTATIN 100,000 UNIT/GM CREAM 15 GM TOPICAL SCH (09:30)
--- NOTE | 2016-05-31 09:41 | PD.ONC.PN ---
Subjective Subjective Remarks Afebrile overnight. Patient very weak today. She says to me "I don't want to do this anymore." "please pray that God will take me." Objective Data Date Time Temp Pulse Resp B/P Pulse Ox O2 Delivery O2 Flow Rate FiO2 05/31/16 08:37 97.6 95 22 136/71 92 05/31/16 08:25 82 Non-Rebreather 100 05/31/16 07:40 84 05/31/16 05:30 97.2 104 22 141/75 95 05/31/16 04:00 Partial Non-Rebreather 12.00 05/31/16 00:37 97.1 93 20 137/71 94 05/30/16 20:49 96.2 101 20 154/81 92 05/30/16 16:55 97.8 108 22 136/78 95 05/30/16 12:35 96.9 106 20 153/73 91 Result Diagram: 05/30/16 0545 05/31/16 0503 Laboratory Results Laboratory Tests Test 05/30/16 05/31/16 05/31/16 11:30 05:03 08:40 Stool C. difficile Toxin (PCR) NEGATIVE Stl C. difficile Toxin PRESUMPTIVE Epiderm 027 NEGATIVE Creatinine 0.65 MG/DL Estimat Glomerular Filtration 89 ML/MIN Rate Vancomycin Level Trough 10.7 MCG/ML Blood Gas Puncture Site rr Blood Gas Patient Temperature 98.6 Blood Gas HCO3 23 mmol/L Blood Gas Base Excess 0.2 mmol/L Blood Gas Oxygen Saturation 92 % Arterial Blood pH 7.48 Arterial Blood Partial 32 mmHg Pressure CO2 Arterial Blood Partial 69 mmHg Pressure O2 Arterial Blood Oxygen Content 14.0 Vol % Arterial Blood 1.4 % Carboxyhemoglobin Arterial Blood Methemoglobin 0.8 % Blood Gas Hemoglobin 10.8 G/DL Oxygen Delivery Device NRB Blood Gas Inspired Oxygen 100 % Administered Medications Medications (Trade) Dose Ordered Sig/Ursula Route PRN Reason Start Time Stop Time Status Last Admin Dose Admin IV Flush 2 ml 2 ml UNSCH PRN IVF FLUSH AFTER USING IV ACCESS 05/25/16 13:15 05/30/16 22:23 Sodium Chloride 1,000 ml @ 100 mls/hr Q10H IV 05/25/16 21:00 05/30/16 15:33 Piperacillin Sod/ Tazobactam Sod (Zosyn 4.5 Gm Premix) 100 ml @ 200 mls/hr Q6H IV 05/25/16 21:00 05/31/16 08:31 Aspirin (Ecotrin Ec) 81 mg DAILY PO 05/26/16 09:00 05/31/16 08:29 Levothyroxine Sodium (Synthroid) 25 mcg DAILY@06 PO 05/26/16 06:00 05/31/16 05:54 Losartan Potassium (Cozaar) 50 mg DAILY PO 05/26/16 09:00 05/31/16 08:27 Topiramate (Topamax) 50 mg BID PO 05/25/16 22:45 05/31/16 08:28 Enoxaparin Sodium (Lovenox Inj) 40 mg Q24H SQ 05/26/16 06:00 05/31/16 05:54 Pantoprazole Sodium (Protonix) 40 mg DAILY PO 05/26/16 09:00 05/31/16 08:28 Lactobacillus Acidophilus (Lactinex) 1 tab Q8H PRN PO diarrhea 05/26/16 15:15 05/26/16 15:58 Acetaminophen/ Hydrocodone Bitart 1 tab 1 tab Q4H PRN PO PAIN 6-10 05/26/16 22:15 05/27/16 05:22 Vancomycin HCl/ Sodium Chloride (Vancomycin Inj/ NS 250 ml Inj) 250 ml @ 250 mls/hr Q18H IV 05/29/16 00:00 05/31/16 05:54 Methylprednisolone Sodium Succinate (SoluMEDROL INJ) 60 mg BID IV PUSH 05/30/16 09:00 05/31/16 08:32 Objective Remarks GENERAL: Frail elderly female, lying in bed NRB mask in place SKIN: Warm and dry. HEAD: Normocephalic. EYES: No injection or drainage. NECK: Supple, trachea midline. CARDIOVASCULAR: +S1/S2 RESPIRATORY: diffuse dry crackles in bilateral bases GASTROINTESTINAL: Abdomen soft, non-tender, nondistended. EXTREMITIES: No cyanosis NEUROLOGICAL: awake, very weak. Assessment/Plan Assessment 71y/o female with metastatic lung cancer, worsening dyspnea. Plan 1. will stop antibiotics and fluids. consult hospice. 2. I called and spoke with patient's and indicated the patient had expressed to me her wish to transition to comfort measures only. He will be here this AM. d/w Dr. Winters, patient's nurse. Lissette Gerber May 31, 2016 09:40 Tyson Ha MD Jun 03, 2016 21:14
--- NOTE | 2016-05-31 10:15 | HHI.PR ---
Subjective Remarks In bed in acute distress 05/19 sob. Says she doesn't feel improving. Desatting on NRM. Will do abg. No fevers or chills. No n/v/d/c. Was eating better yesterday. Denies pain. Objective Vitals Vital Signs Date Time Temp Pulse Resp B/P Pulse Ox O2 Delivery O2 Flow Rate FiO2 05/31/16 08:37 97.6 95 22 136/71 92 05/31/16 08:25 82 Non-Rebreather 100 05/31/16 07:40 84 05/31/16 05:30 97.2 104 22 141/75 95 05/31/16 04:00 Partial Non-Rebreather 12.00 05/31/16 00:37 97.1 93 20 137/71 94 05/30/16 20:49 96.2 101 20 154/81 92 05/30/16 16:55 97.8 108 22 136/78 95 05/30/16 12:35 96.9 106 20 153/73 91 I/O 05/30/16 05/30/16 05/30/16 05/31/16 05/31/16 05/31/16 07:00 15:00 23:00 07:00 15:00 23:00 Intake Total 240 ml 1770 ml 1354 ml Balance 240 ml 1770 ml 1354 ml Intake Oral 240 ml 120 ml IV Total 1650 ml 1354 ml # Voids 5 8 1 3 # Bowel Movements 2 1 1 Result Diagram: 05/30/16 0545 05/31/16 0503 Imaging Last Impressions Entire Spine MRI 05/25/16 1302 Signed Impressions: Service Date/Time: Wednesday, May 25, 2016 15:42 - CONCLUSION: Widespread metastatic disease without obvious cord compression. Subtle cord involvement and possible meningeal spread, dural carcinomatosis cannot be excluded on this screening exam. Alex Barrow MD FACR CT Angiography 05/25/16 1302 Signed Impressions: Service Date/Time: Wednesday, May 25, 2016 16:53 - CONCLUSION: 1. Very abnormal appearance of the lungs with symmetric, predominantly perihilar ground glass density and interstitial prominence suggesting a hypersensitivity pneumonitis or other reactive process. 2. In addition, confluent airspace process in the medial aspect of the left base may represent atelectasis or early infiltrate. 3. 4 cm lipoma in the paramidline base of the right neck. 4. Parapelvic cysts in the left kidney John Andrade MD Pelvis X-Ray 05/25/16 0000 Signed Impressions: Service Date/Time: Wednesday, May 25, 2016 15:17 - CONCLUSION: 1. No acute fracture or dislocation. 2. Mixed lytic and sclerotic lesion involving the medial aspect of the right iliac bone as well as probable sclerotic lesions involving the right upper sacrum in the S1 segment and the superior medial aspect of the left iliac crest. If there has been no outside imaging evaluating these lesions, bone scan may be helpful for further evaluation. Jovanny Garcia MD Objective Remarks GENERAL: This is a pleasant elderly female patient, in no apparent distress. SKIN: No rashes, ecchymoses or lesions. Cool and dry. HEAD: Atraumatic. Normocephalic. EYES: No scleral icterus. No injection or drainage. ENT: Nose without bleeding, purulent drainage. NECK: Trachea midline. No JVD or lymphadenopathy. CARDIOVASCULAR: Regular rate and rhythm without murmurs, gallops, or rubs. RESPIRATORY: Breath sounds with diminished breath sounds, equal bilaterally. No wheezes, rales, or rhonchi. Respiratory rate = 22. GASTROINTESTINAL: Abdomen soft, non-tender, nondistended. No guarding. MUSCULOSKELETAL: Extremities without clubbing, cyanosis, or edema. No calf tenderness. NEUROLOGICAL: Awake but drowsy. Motor and sensory grossly within normal limits. Normal speech. A/P Problem List: (1) Sepsis ICD Code: A41.9 Status: Acute (2) Pneumonia ICD Code: J18.9 Status: Acute (3) Acute hypoxemic respiratory failure ICD Code: J96.01 Status: Acute (4) Dehydration ICD Code: E86.0 Status: Acute (5) Weakness ICD Code: R53.1 Status: Acute Assessment and Plan Mrs. Metz is a 71-year-old female with a past medical history of left breast cancer status post mastectomy 1988 and stage IV lung cancer diagnosed in 2011 treated with chemotherapy and radiation for brain metastases who was sent from oncologist Dr. Ha' office this morning for evaluation of hypoxia and severe fatigue. CT pulmonary angiogram revealed abnormal appearance of the lungs- film personally reviewed and appears consistent with pneumonia. Sepsis - Respiratory rate greater than 22, tachycardic, pneumonia on CT angiogram - meets sepsis criteria - Lactic acid 1.5, WBC 11.1 with neutrophilia on admission, we'll repeat labs , follow trends - Vancomycin IV with pharmacy consult to assist with therapeutic monitoring and dosing. Zosyn 4.5 g IV every 6 hours. Will DC antibiotics today 05/31. Discussed with hem/onc service. - IV fluid hydration with normal saline at 100 cc per hour for maintenance received 1740 cc IV fluid bolus on admission Pneumonia/ Pneumonitis. Pneumonitis likely associated with use of TKI Tagrisso. Acute hypoxemic respiratory failure - Duo nebulizers every 4 hours and when necessary for shortness of breath - Supplemental oxygen via nasal cannula titrated to maintain oxygen saturation greater than 92%. On NRM, keep O2 sat >90%. Pulm also following. - Solu-Medrol 60 mg IV every 12 hours as ordered by Dr. Ha, taper as tolerated - Will DC abx Dehydration - IV fluid hydration with normal saline at 100 cc per hour Weakness - Consult physical therapy Stage IV lung cancer - Consult patient's oncologist Dr. Ha; appreciate his assistance MRI spine with multiple sites of mets Repeat CT scan per oncology GERD - Protonix 40 mg p.o. q24h DVT prophylaxis - Lovenox 40 mg subcutaneous every 24 hours Discussed Condition With Patient, nurse, family at bedside Poor prognosis. Consult palliative care. Patient wants comfort measure, will consult hospice. Code status is DNR. Ghada Winters MD May 31, 2016 10:15
--- NOTE | 2016-05-31 10:51 | HHI.HCPN ---
Reason for visit a. To assist with evaluation and management of symptoms including: dyspnea and debility. b. To assist medical decision maker(s) with: better understanding of current medical conditions; weighing benefits/burdens of medical treatment options; making medical treatment decisions. . Subjective/Interval History Palliative care f/u for symptom management of dyspnea, further clarification of goals of care and emotional support to patient and family. patient seen in her room. She was laying in bed in moderate distress secondary to shortness of breath, tachypnea. patient afebrile, remains on nonrebreather mask at 15L, increased work of breathing noted. Patient lethargic, weak, only able to speak a few words at at time secondary to profound dyspnea. No new labs or imaging. Payam and daughter Lulu at bedside. Daughter Urvashi to arrive later this afternoon. Patient verbalized that she is "ready to go" and wish to me made comfortable/allow natural . and daughter appropriately tearful. Reviewed hospice services given patient's terminal condition and known wishes. Family in agreement of hospice consultation with the goal of transferring patient to care center for symptom management of dyspnea and for end of life care. Discussed prognosis with life expectancy of hours to days if illness runs its natural course. Ongoing emotional support and active listening provided. . Family/friend interactions See interval note. . Advance Directives Living Will: Never completed Health Care Surrogate: Never completed Durable Power of Crown Wheel Assembler: Never completed Advance Directive Specifics Health Care Surrogate(s): No healthcare surrogate designation has been completed. As per [place] statute , healthcare proxy decision-making falls to patient's . Patient in agreement of this and declined completing healthcare surrogate designation. Documented care wishes: No living will has been completed. . Significant change in goals: NO CODE. Transition patient to comfort-directed care with hospice given her terminal condition, acute complications and known wishes. . Objective Vital Signs Date Time Temp Pulse Resp B/P Pulse Ox O2 Delivery O2 Flow Rate FiO2 05/31/16 08:37 97.6 95 22 136/71 92 05/31/16 08:25 82 Non-Rebreather 100 05/31/16 07:40 84 05/31/16 05:30 97.2 104 22 141/75 95 05/31/16 04:00 Partial Non-Rebreather 12.00 05/31/16 00:37 97.1 93 20 137/71 94 2/13/17 20:49 96.2 101 20 154/81 92 05/30/16 16:55 97.8 108 22 136/78 95 05/30/16 12:35 96.9 106 20 153/73 91 Intake & Output 05/31/16 05/31/16 07:00 19:00 # Voids 4 # Bowel Movements 2 Physical Exam CONSTITUTIONAL/GENERAL: This is cachectic, ill-looking female in moderate distress secondary to tachypnea and increased work of breathing. weak. TUBES/LINES/DRAINS: PIV's, SCDs, nonrebreather mask. SKIN: No jaundice, rashes, or lesions. Ecchymoses on upper extremities. No wounds seen anteriorly. Skin temperature appropriate. Not diaphoretic. HEAD: Atraumatic. Normocephalic. Bilateral temporal wasting noted. EYES: Pupils equal and round and reactive. No scleral icterus. No injection or drainage. ENT: Hearing grossly normal. Nose without bleeding or purulent drainage. Dry oral mucosa and lips. NECK: Trachea midline. Supple, nontender. CARDIOVASCULAR: Regular rate and rhythm without murmurs, gallops, or rubs. No JVD. Peripheral pulses symmetric. RESPIRATORY/CHEST: Tachypnea, increased work of breathing. Using accessory muscles. Clear, diminished to auscultation. GASTROINTESTINAL: Abdomen soft, non-tender, nondistended. Bowel sounds present. GENITOURINARY: Without palpable bladder distension. MUSCULOSKELETAL: Extremities without clubbing, cyanosis, or edema. No mottling or clubbing. NEUROLOGICAL: Awake and alert. Motor and sensory grossly within normal limits. Follows commands. Moves all extremities. Verbal, limited speech secondary to profound shortness of breath. PSYCHIATRIC: No obvious anxiety/depression. Diagnostic Tests Laboratory Laboratory Tests Test 05/28/16 05/28/16 05/29/16 05/29/16 13:47 21:55 05:35 23:33 White Blood Count 20.1 TH/MM3 (4.0-11.0) Red Blood Count 3.71 MIL/MM3 (4.00-5.30) Hemoglobin 11.3 GM/DL (11.6-15.3) Hematocrit 33.5 % (35.0-46.0) Mean Corpuscular Volume 90.1 FL (80.0-100.0) Mean Corpuscular Hemoglobin 30.5 PG (27.0-34.0) Mean Corpuscular Hemoglobin 33.9 % Concent (32.0-36.0) Red Cell Distribution Width 14.4 % (11.6-17.2) Platelet Count 279 TH/MM3 (150-450) Mean Platelet Volume 8.4 FL (7.0-11.0) Neutrophils (%) (Auto) 94.0 % (16.0-70.0) Lymphocytes (%) (Auto) 2.2 % (9.0-44.0) Monocytes (%) (Auto) 3.7 % (0.0-8.0) Eosinophils (%) (Auto) 0.0 % (0.0-4.0) Basophils (%) (Auto) 0.1 % (0.0-2.0) Neutrophils # (Auto) 18.9 TH/MM3 (1.8-7.7) Lymphocytes # (Auto) 0.4 TH/MM3 (1.0-4.8) Monocytes # (Auto) 0.7 TH/MM3 (0-0.9) Eosinophils # (Auto) 0.0 TH/MM3 (0-0.4) Basophils # (Auto) 0.0 TH/MM3 (0-0.2) CBC Comment DIFF FINAL Differential Comment Sodium Level 142 MEQ/L 143 MEQ/L (136-145) (136-145) Potassium Level 3.0 MEQ/L 3.2 MEQ/L (3.5-5.1) (3.5-5.1) Chloride Level 110 MEQ/L 111 MEQ/L (98-107) (98-107) Carbon Dioxide Level 23.3 MEQ/L 22.6 MEQ/L (21.0-32.0) (21.0-32.0) Anion Gap 9 MEQ/L (5-15) 9 MEQ/L (5-15) Blood Urea Nitrogen 24 MG/DL (7-18) 15 MG/DL (7-18) Creatinine 0.98 MG/DL 0.78 MG/DL 0.80 MG/DL (0.50-1.00) (0.50-1.00) (0.50-1.00) Estimat Glomerular Filtration 56 ML/MIN (>89) 72 ML/MIN (>89) 70 ML/MIN (>89) Rate Random Glucose 183 MG/DL 137 MG/DL (74-106) (74-106) Calcium Level 8.0 MG/DL 8.3 MG/DL (8.5-10.1) (8.5-10.1) Vancomycin Level Trough 8.4 MCG/ML (5.0-10.0) Magnesium Level 1.9 MG/DL (1.5-2.5) Test 05/30/16 05/30/16 05/31/16 05/31/16 05:45 11:30 05:03 08:40 White Blood Count 20.3 TH/MM3 (4.0-11.0) Red Blood Count 3.56 MIL/MM3 (4.00-5.30) Hemoglobin 10.6 GM/DL (11.6-15.3) Hematocrit 31.9 % (35.0-46.0) Mean Corpuscular Volume 89.7 FL (80.0-100.0) Mean Corpuscular Hemoglobin 29.9 PG (27.0-34.0) Mean Corpuscular Hemoglobin 33.3 % Concent (32.0-36.0) Red Cell Distribution Width 14.4 % (11.6-17.2) Platelet Count 263 TH/MM3 (150-450) Mean Platelet Volume 8.5 FL (7.0-11.0) Neutrophils (%) (Auto) 92.3 % (16.0-70.0) Lymphocytes (%) (Auto) 2.9 % (9.0-44.0) Monocytes (%) (Auto) 3.9 % (0.0-8.0) Eosinophils (%) (Auto) 0.8 % (0.0-4.0) Basophils (%) (Auto) 0.1 % (0.0-2.0) Neutrophils # (Auto) 18.8 TH/MM3 (1.8-7.7) Lymphocytes # (Auto) 0.6 TH/MM3 (1.0-4.8) Monocytes # (Auto) 0.8 TH/MM3 (0-0.9) Eosinophils # (Auto) 0.2 TH/MM3 (0-0.4) Basophils # (Auto) 0.0 TH/MM3 (0-0.2) CBC Comment DIFF FINAL Differential Comment Sodium Level 142 MEQ/L (136-145) Potassium Level 3.6 MEQ/L (3.5-5.1) Chloride Level 110 MEQ/L (98-107) Carbon Dioxide Level 22.9 MEQ/L (21.0-32.0) Anion Gap 9 MEQ/L (5-15) Blood Urea Nitrogen 15 MG/DL (7-18) Creatinine 0.77 MG/DL 0.65 MG/DL (0.50-1.00) (0.50-1.00) Estimat Glomerular Filtration 73 ML/MIN (>89) 89 ML/MIN (>89) Rate Random Glucose 103 MG/DL (74-106) Calcium Level 8.6 MG/DL (8.5-10.1) Phosphorus Level 1.3 MG/DL (2.5-4.9) Magnesium Level 1.8 MG/DL (1.5-2.5) Stool C. difficile Toxin (PCR) NEGATIVE (NEGATIVE) Stl C. difficile Toxin PRESUMPTIVE Epiderm 027 NEGATIVE (NEGATIVE) Vancomycin Level Trough 10.7 MCG/ML (5.0-10.0) Blood Gas Puncture Site rr Blood Gas Patient Temperature 98.6 Blood Gas HCO3 23 mmol/L (22-26) Blood Gas Base Excess 0.2 mmol/L (-2-2) Blood Gas Oxygen Saturation 92 % (90-100) Arterial Blood pH 7.48 (7.380-7.420) Arterial Blood Partial 32 mmHg (38-42) Pressure CO2 Arterial Blood Partial 69 mmHg Pressure O2 (61-120) Arterial Blood Oxygen Content 14.0 Vol % (12.0-20.0) Arterial Blood 1.4 % (0-4) Carboxyhemoglobin Arterial Blood Methemoglobin 0.8 % (0-2) Blood Gas Hemoglobin 10.8 G/DL (12.0-16.0) Oxygen Delivery Device NRB Blood Gas Inspired Oxygen 100 % Result Diagram: 05/30/16 0545 05/31/16 0507 Assessment and Plan Disease Oriented Problem List: (1) Pneumonitis (2) Sepsis (3) Dehydration (4) Acute hypoxemic respiratory failure Symptom Scale: (1) Shortness of breath 0-10 Scale: 10 Comment: Secondary to pneumonitis. (2) Back pain 0-10 Scale: 2 Comment: Secondary to burden of disease/metastasis to spine. (3) Weakness 0-10 Scale: Unable to quantify Comment: Profound debility and progressive weakness, worsened in the last week. Pertinent Non-Medical Issues Psychosocial: Patient is . Has 2 daughters. Now retired. Spiritual: Holiness rishi. Legal: No living will has been completed. Ethical issues impacting care: No ethical issues have been identified. . Important Contacts Payam Metz [phone]. . Prognosis Mrs. 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 Now found with newly discovered metastases to spine. Patient has received multiple treatments by continue with developing progression of disease. Patient diagnosed with pneumonitis secondary to current chemotherapy agent. Her overall prognosis is poor for an improved quality of life or long-term survival given her progression of disease on multiple agents, progressive physical decline, nutrition status, and acute events. Life expectancy of hours to days if illness run its natural course, patient hospice appropriate. . Code Status: No Code Plan * CODE STATUS: NO CODE -DNR/DNI. * Decision-making capacity: No healthcare surrogate designation has been completed. As per [place] statute, healthcare proxy decision-making falls to patient's Payam Metz. Patient in agreement of this and declined completing healthcare surrogate designation. * GOALS OF CARE: 05/31/16 -NO CODE. Patient and family electing comfort-directed care with hospice given patient's terminal condition, acute complications and known wishes. Payam and daughter Lulu at bedside. Patient verbalized that she is "ready to go" and wish to me made comfortable/allow natural . and daughter appropriately tearful. Reviewed hospice services given patient's terminal condition and known wishes. Family in agreement of hospice consultation with the goal of transferring patient to care center for symptom management of dyspnea and for end of life care. Discussed prognosis with life expectancy of hours to days if illness runs its natural course. Ongoing emotional support and active listening provided. * Family electing [facility]. referral has been made. * Anticipatory guidance provided to family. * Spiritual services offered and accepted. Reviewed case with [place] [employer] coach. * SYMPTOMS: == Dyspnea: Secondary to reactive pneumonitis. Solu-Medrol discontinued. Patient remains very symptomatic, ongoing facemask at 12 L. Palliative care recommends adding Morphine IV and Ativan IV for symptom management. == Debility: Secondary to burden of disease == Back pain, secondary to burden of disease/spine metastasis. On home regimen of Silt as needed. == Diarrhea, Negative C. diff result. * Ongoing emotional support and active listening provided. * Palliative care contact information has been provided. * Palliative care will continue to follow-up for symptom management and emotional support as needed. . Time Spent Total Floor Time (mins): 45 (Total time to include review ofmedical records, physical exam, GOC conversation with patient and family. ) Face to Face Time (mins): 32 >50% Counseling/Coord of Care: Yes Attestation To help prompt me to consider important information that might be impacting today's encounter and assessment, information from prior notes written by myself or my colleagues may have been "brought forward" into today's note. My signature on this note, however, is an attestation that I personally performed the exam, history, and/or decision-making noted today, and, unless otherwise indicated, the interactions with patient, family, and staff as well as the review of records all occurred today. I also attest that the listed assessment and stated plan reflect my best clinical judgment today based on the combination of historical information, prior notes, and today's exam/ interactions. When time spent is documented, it refers only to time spent today by the signer, or if indicated, combined time spent today by collaborating physician/nurse practitioner. Micaela Condon May 31, 2016 10:51
[2016-05-31] MEDS: RESP: ALBUTEROL 2.5 MG/IPRATROPIUM 0.5 MG NEB (SCH) NEB ×2 (11:34→15:24)
[2016-05-31] MEDS ORDERED: MORPHINE SULFATE 4 MG/ML INJ IV PRN (12:00)
[2016-05-31] MEDS ORDERED: MORPHINE SULFATE 8 MG/ML INJ IV PUSH PRN (12:00)
[2016-05-31] MEDS ORDERED: LORazepam 2 MG/ML VIAL IV PRN (12:00)
[2016-05-31] MEDS: LORazepam 2 MG/ML VIAL IV PRN ×2 (15:23→18:56)
[2016-05-31] MEDS ORDERED: PRED10PA PO (15:38)
--- NOTE | 2016-05-31 15:41 | HHI.DS ---
Discharge Summary Admission Date May 25, 2016 at 18:26 Discharge Date: May 31, 2016 Admitting Diagnosis Pneumonitis, hypoxia (1) Sepsis ICD Code: A41.9 Diagnosis: Principal (2) Pneumonia ICD Code: J18.9 Diagnosis: Principal (3) Acute hypoxemic respiratory failure ICD Code: J96.01 Diagnosis: Principal (4) Dehydration ICD Code: E86.0 Diagnosis: Principal (5) Weakness ICD Code: R53.1 Diagnosis: Principal (6) Non-small cell carcinoma of left lung, stage 4 ICD Code: C34.92 Diagnosis: Secondary (7) Hypothyroidism ICD Code: E03.9 Diagnosis: Secondary Procedures none Brief History - From Admission Mrs. Metz is a 71-year-old female with a past medical history of left breast cancer status post mastectomy 1988 and stage IV lung cancer diagnosed in 2011 treated with chemotherapy and radiation for brain metastases who was sent from oncologist Dr. Ha' office this morning for evaluation of hypoxia and severe fatigue. CT pulmonary angiogram revealed abnormal appearance of the lungs- film personally reviewed and appears consistent with pneumonia. The patient is seen in the emergency room and has the following complaints: Severe fatigue x 1 week with progressive worsening. Tired very easily with minimal exertion. Accompanied by shortness of breath. Sleeping 90% of the time and not eating or drinking much. Poor appetite. Dizziness; worse when she gets up. Some times has chills. Has cold intolerance. Some time has stomach ache. Diarrhea - was given medication by Dr. Ha for diarrhea. Also takes stool softeners for constipation. No nausea or vomiting. No peripheral edema currently. Did have some for a few weeks but it went away. Has daily calf cramps: "simba horses". Bilateral lung malignancies with mets to brain: treated with chemotherapy for years ago "didn't work"- dx 2011; had radiation therapy. Denies cough, fevers. . CBC/BMP: 05/30/16 0545 05/31/16 0503 Significant Findings Laboratory Tests Test 05/28/16 05/29/16 05/29/16 05/30/16 21:55 05:35 23:33 05:45 Potassium Level 3.0 MEQ/L 3.2 MEQ/L (3.5-5.1) (3.5-5.1) Chloride Level 110 MEQ/L 111 MEQ/L 110 MEQ/L (98-107) (98-107) (98-107) Blood Urea Nitrogen 24 MG/DL (7-18) Estimat Glomerular Filtration 56 ML/MIN (>89) 72 ML/MIN (>89) 70 ML/MIN (>89) 73 ML/MIN (>89) Rate Random Glucose 183 MG/DL 137 MG/DL (74-106) (74-106) Calcium Level 8.0 MG/DL 8.3 MG/DL (8.5-10.1) (8.5-10.1) White Blood Count 20.3 TH/MM3 (4.0-11.0) Red Blood Count 3.56 MIL/MM3 (4.00-5.30) Hemoglobin 10.6 GM/DL (11.6-15.3) Hematocrit 31.9 % (35.0-46.0) Neutrophils (%) (Auto) 92.3 % (16.0-70.0) Lymphocytes (%) (Auto) 2.9 % (9.0-44.0) Neutrophils # (Auto) 18.8 TH/MM3 (1.8-7.7) Lymphocytes # (Auto) 0.6 TH/MM3 (1.0-4.8) Phosphorus Level 1.3 MG/DL (2.5-4.9) Test 05/31/16 05/31/16 05:03 08:40 Vancomycin Level Trough 10.7 MCG/ML (5.0-10.0) Arterial Blood pH 7.48 (7.380-7.420) Arterial Blood Partial 32 mmHg (38-42) Pressure CO2 Blood Gas Hemoglobin 10.8 G/DL (12.0-16.0) Imaging Last Impressions Entire Spine MRI 05/25/16 1302 Signed Impressions: Service Date/Time: Wednesday, May 25, 2016 15:42 - CONCLUSION: Widespread metastatic disease without obvious cord compression. Subtle cord involvement and possible meningeal spread, dural carcinomatosis cannot be excluded on this screening exam. Alex Barrow MD FACR CT Angiography 05/25/16 1302 Signed Impressions: Service Date/Time: Wednesday, May 25, 2016 16:53 - CONCLUSION: 1. Very abnormal appearance of the lungs with symmetric, predominantly perihilar ground glass density and interstitial prominence suggesting a hypersensitivity pneumonitis or other reactive process. 2. In addition, confluent airspace process in the medial aspect of the left base may represent atelectasis or early infiltrate. 3. 4 cm lipoma in the paramidline base of the right neck. 4. Parapelvic cysts in the left kidney John Andrade MD Pelvis X-Ray 05/25/16 0000 Signed Impressions: Service Date/Time: Wednesday, May 25, 2016 15:17 - CONCLUSION: 1. No acute fracture or dislocation. 2. Mixed lytic and sclerotic lesion involving the medial aspect of the right iliac bone as well as probable sclerotic lesions involving the right upper sacrum in the S1 segment and the superior medial aspect of the left iliac crest. If there has been no outside imaging evaluating these lesions, bone scan may be helpful for further evaluation. Jovanny Garcia MD PE at Discharge GENERAL: This is a pleasant elderly female patient, in no apparent distress. SKIN: No rashes, ecchymoses or lesions. Cool and dry. HEAD: Atraumatic. Normocephalic. EYES: No scleral icterus. No injection or drainage. ENT: Nose without bleeding, purulent drainage. NECK: Trachea midline. No JVD or lymphadenopathy. CARDIOVASCULAR: Regular rate and rhythm without murmurs, gallops, or rubs. RESPIRATORY: Breath sounds with diminished breath sounds, equal bilaterally. No wheezes, rales, or rhonchi. Respiratory rate = 22. GASTROINTESTINAL: Abdomen soft, non-tender, nondistended. No guarding. MUSCULOSKELETAL: Extremities without clubbing, cyanosis, or edema. No calf tenderness. NEUROLOGICAL: Awake but drowsy. Motor and sensory grossly within normal limits. Normal speech. Hospital Course Mrs. Metz is a 71-year-old female with a past medical history of left breast cancer status post mastectomy 1988 and stage IV lung cancer diagnosed in 2011 treated with chemotherapy and radiation for brain metastases who was sent from oncologist Dr. Ha' office this morning for evaluation of hypoxia and severe fatigue. CT pulmonary angiogram revealed abnormal appearance of the lungs- film personally reviewed and appears consistent with pneumonia. Sepsis - Respiratory rate greater than 22, tachycardic, pneumonia on CT angiogram - meets sepsis criteria - Lactic acid 1.5, WBC 11.1 with neutrophilia on admission, we'll repeat labs , follow trends - Vancomycin IV with pharmacy consult to assist with therapeutic monitoring and dosing. Zosyn 4.5 g IV every 6 hours. Will DC antibiotics today 05/31. Discussed with hem/onc service. - IV fluid hydration with normal saline at 100 cc per hour for maintenance received 1740 cc IV fluid bolus on admission Pneumonia/ Pneumonitis. Pneumonitis likely associated with use of TKI Tagrisso. Acute hypoxemic respiratory failure - Duo nebulizers every 4 hours and when necessary for shortness of breath - Supplemental oxygen via nasal cannula titrated to maintain oxygen saturation greater than 92%. On NRM, keep O2 sat >90%. Pulm also following. - Solu-Medrol 60 mg IV every 12 hours as ordered by Dr. Ha, taper as tolerated - Will DC abx Dehydration - IV fluid hydration with normal saline at 100 cc per hour Weakness - Consult physical therapy Stage IV lung cancer - Consult patient's oncologist Dr. Ha; appreciate his assistance MRI spine with multiple sites of mets Repeat CT scan per oncology GERD - Protonix 40 mg p.o. q24h DVT prophylaxis - Lovenox 40 mg subcutaneous every 24 hours Discussed Condition With Patient, nurse, family at bedside Poor prognosis. Consult palliative care. Patient wants comfort measure, will consult hospice. Code status is DNR. Patient is deteriorating she did require hospice care. She was discharged to [facility] hosp[facility] in deteriorating condition. Pt Condition on Discharge: Deteriorating Discharge Disposition: Hospice/Med Facility Discharge Time: > 30 minutes Discharge Instructions DIET: Follow Instructions for: As Tolerated, No Restrictions Activities you can perform: Regular-No Restrictions New Medications: Prednisone (21) 10 mg tab Dose Pack (Prednisone (21) 10 mg tab Dose Pack) 10 Mg Pack 10 MG PO DIRECTED Inflammation #1 Ref 0 DSPK Continued Medications: Aspirin (Aspirin) 81 Mg Tabdr 81 MG PO DAILY TAB Calcium Carbonate (Calcium) 600 Mg Tab 600 MG PO BID Hydrocodone-Acetaminophen (Hydrocodone-Acetaminophen) 5-325 mg Tab 1 TAB PO Q4H PRN PAIN Ref 0 TAB Ibuprofen (Advil) 200 Mg Cap 200 MG PO Q4H PRN Ref 0 CAP Levothyroxine (Levothyroxine) 25 Mcg Tab 25 MCG PO DAILY Thyroid #30 Ref 0 TAB Losartan (Losartan) 50 Mg Tab 50 MG PO DAILY Blood Pressure Management #30 Ref 0 TAB Topiramate (Topiramate) 50 Mg Tab 50 MG PO BID Control Seizures #60 Ref 0 TAB Ghada Winters MD May 31, 2016 15:40
--- NOTE | 2016-05-31 18:46 | HHI.PR ---
Subjective Remarks 71 YO female with NSCLC, metastatic, ca breast On therapy with Tagreesa On NRB No Fever family at . Evaluated by Hospice Objective Vital Signs Vital Signs Date Time Temp Pulse Resp B/P Pulse Ox O2 Delivery O2 Flow Rate FiO2 05/31/16 13:01 99.2 90 18 140/71 93 05/31/16 11:35 93 Non-Rebreather 100 05/31/16 08:37 97.6 95 22 136/71 92 05/31/16 08:25 82 Non-Rebreather 100 05/31/16 08:23 91 Non-Rebreather 15.00 05/31/16 07:40 84 05/31/16 05:30 97.2 104 22 141/75 95 05/31/16 04:00 Partial Non-Rebreather 12.00 05/31/16 00:37 97.1 93 20 137/71 94 05/30/16 20:49 96.2 101 20 154/81 92 I/O 05/30/16 05/30/16 05/30/16 05/31/16 05/31/16 05/31/16 07:00 15:00 23:00 07:00 15:00 23:00 Intake Total 240 ml 1770 ml 1354 ml 120 ml Balance 240 ml 1770 ml 1354 ml 120 ml Intake Oral 240 ml 120 ml 120 ml IV Total 1650 ml 1354 ml # Voids 5 8 1 3 # Bowel Movements 2 1 1 Result Diagram: 05/30/16 0545 05/31/16 0503 Objective Remarks GENERAL: MBMN Female, sob SKIN: Warm and dry. HEAD: Normocephalic. EYES: No scleral icterus. No injection or drainage. NECK: Supple, trachea midline. No JVD or lymphadenopathy. CARDIOVASCULAR: Regular rate and rhythm without murmurs, gallops, or rubs. RESPIRATORY: Breath sounds equal bilaterally. No accessory muscle use. Bilat rales GASTROINTESTINAL: Abdomen soft, non-tender, nondistended. MUSCULOSKELETAL: No cyanosis, or edema. BACK: Nontender without obvious deformity. No CVA tenderness. 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
== END 2016-05-31 18:58 | disposition hospice, inpatient (51) | DRG 871 ==
LOC: NEPC 12:07 → NEDA 18:26 → NEDH 22:26 → N05A 05-26 10:16
PROVIDERS: ADMIT Hospitalist; ATTEND Hospitalist
DX: A41.9 Sepsis, unspecified organism (principal); J18.9 Pneumonia, unspecified organism; J96.01 Acute respiratory failure with hypoxia; C79.31 Secondary malignant neoplasm of brain; C79.51 Secondary malignant neoplasm of bone; G40.909 Epilepsy, unspecified, not intractable, without status epilepticus; J98.11 Atelectasis; E86.0 Dehydration; Z90.10 Acquired absence of unspecified breast and nipple; Z85.3 Personal history of malignant neoplasm of breast; Z85.118 Personal history of other malignant neoplasm of bronchus and lung; Z92.21 Personal history of antineoplastic chemotherapy; Z92.3 Personal history of irradiation; E03.9 Hypothyroidism, unspecified; E78.5 Hyperlipidemia, unspecified; I10 Essential (primary) hypertension; I49.3 Ventricular premature depolarization; K21.9 Gastro-esophageal reflux disease without esophagitis; R63.3 Feeding difficulties; Z51.5 Encounter for palliative care; Z66 Do not resuscitate; Z86.73 Personal history of transient ischemic attack (TIA), and cerebral infarction without residual deficits; Z99.3 Dependence on wheelchair; Z79.899 Other long term (current) drug therapy
CPT/HCPCS: 36600; 71275; 72156; 72158; 72170; 80048; 80053; 80202; 82378; 82533; 82550; 82565; 82805; 83605; 83735; 83880; 84100; 84443; 84484; 85025; 85610; 85730; 87493; 93005; 94640; 94664; 96523; A9579; G0463; J1642; J1650; J2060; J2543; J2930; J3370; J7030; J7040; J7050; Q9967